=== PATIENT | male | born 1955 | race Caucasian/White ===

== ENCOUNTER 2016-07-31 08:54 | Inpatient (IN) | payer OTHER ==
--- NOTE | 2016-07-31 08:59 | EDM.PDOC ---
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 Contents of the pipe exploded off and hit him on the left side of his abdomen this morning. Review of systems: As per history of present illness and below otherwise all systems reviewed and negative. Past medical history: As per history of present illness and as reviewed below otherwise noncontributory. Surgical history: As per history of present illness and as reviewed below otherwise noncontributory. Social history: No reported history of drug or alcohol abuse. Family history: As per history of present illness and as reviewed below otherwise noncontributory. Physical exam: General: Well developed, well nourished in NAD HEENT: Atraumatic, normocephalic, pupils reactive, negative for conjunctival pallor or scleral icterus, mucous membranes moist, throat clear, neck supple, nontender, trachea midline. Lungs: Clear to auscultation, breath sounds equal bilaterally, tender left lower chest, there is no subcutaneous or bony crepitance, linear contusion on the left lower chest wall extending to the left upper abdomen. Heart: S1S2, regular, negative for clicks, rubs, or JVD. Abdomen: Soft, nondistended, moderate left upper quadrant tenderness and mild diffuse tenderness extending to the pelvis without rebound or guarding. Negative for masses. Pelvis: Stable nontender. Genitourinary: Deferred. Rectal: Deferred. Extremities: Atraumatic, negative for cords or calf pain. Neurovascular unremarkable. Neuro: Awake, alert, oriented. Cranial nerves II through XII unremarkable. Cerebellum unremarkable. Motor and sensory unremarkable throughout. Exam nonfocal. Diagnostics: []CT abdomen chest pelvis shows a ruptured spleen otherwise normal labs and vital signs are stable while in the ED. Therapeutics: []IV fluids and Zofran patient declined pain medication Impression: []Ruptured spleen Plan: []Admit to general surgery directly to the OR for splenectomy by Dr. Geronimo. Definitive disposition and diagnosis as appropriate pending reevaluation and review of above. left rib Pain Score (Numeric/FACES): 3 - Related Data Allergies Allergy/AdvReac Type Severity Reaction Status Date / Time No Known Allergies Allergy Verified 07/31/16 08:55 Home Meds: Home Meds . [No Known Home Meds] 07/31/16 [History] ED ROS GENERAL - Review of Systems Review Of Systems: See Below (See history of present illness) ED EXAM, GENERAL - Physical Exam Exam: See Below (See history of present illness) Course - Vital Signs Last Recorded V/S: Last Vital Signs Temp 36.4 C 07/31/16 08:56 Pulse 87 07/31/16 09:43 Resp 18 07/31/16 09:43 BP 144/88 H 07/31/16 09:43 Pulse Ox 97 07/31/16 09:43 - Orders/Labs/Meds Orders: Active Orders 24 hr Category Date Time Status Patient Status [ADT] Stat ADT 07/31/16 09:58 Ordered Antiembolic Devices [RC] PER UNIT ROUTINE Care 07/31/16 10:04 Active Wells Catheter Insertion [Insert Urinary Catheter] [OM. Care 07/31/16 10:15 Ordered PC] Q24H Oxygen Therapy [RC] PRN Care 07/31/16 10:03 Active Pulse Oximetry [RC] INTERMITTENT Care 07/31/16 10:03 Active Skin Preparation [RC] .PREOP Care 07/31/16 10:03 Active Urinary Catheter Assessment [RC] ASDIRECTED Care 07/31/16 10:03 Active Urinary Catheter Assessment [RC] ASDIRECTED Care 07/31/16 10:04 Active Vital Signs [RC] PER UNIT ROUTINE Care 07/31/16 10:03 Active Nothing Per Oral Diet [DIET] Diet 07/31/16 Breakfast Active TYPE AND SCREEN [BBK] Stat Lab 07/31/16 09:49 Received UA W/MICROSCOPIC [URIN] Stat Lab 07/31/16 09:00 Uncollected Lactated Ringers [Ringers, Lactated] 1,000 ml Med 07/31/16 10:15 Active IV ASDIRECTED Antiembolic Hose [OM.PC] PER UNIT ROUTINE Oth 07/31/16 06:00 Ordered Antiembolic Hose [OM.PC] PER UNIT ROUTINE Oth 08/01/16 06:00 Ordered Saline Lock Insert [OM.PC] Stat Oth 07/31/16 08:59 Ordered Sequential Compression Device [OM.PC] Routine Oth 07/31/16 10:03 Ordered Resuscitation Status Routine Resus Stat 07/31/16 10:03 Ordered Medication Orders Lactated Ringer's (Ringers, Lactated) 1,000 mls @ 125 mls/hr IV ASDIRECTED [facility] Labs: Laboratory Tests 07/31/16 07/31/16 Range/Units 09:00 09:00 WBC 10.26 (4.0-11.0) K/uL RBC 4.74 (4.50-5.90) M/uL Hgb 14.4 (13.0-17.0) g/dL Hct 41.5 (38.0-50.0) % MCV 87.6 (80.0-98.0) fL MCH 30.4 (27.0-32.0) pg MCHC 34.7 (31.0-37.0) g/dL RDW Std Deviation 42.8 (28.0-62.0) fl RDW Coeff of Gustavo 13 (11.0-15.0) % Plt Count 164 (150-400) K/uL MPV 10.70 (7.40-12.00) fL Neut % (Auto) 86.1 H (48.0-80.0) % Lymph % (Auto) 7.2 L (16.0-40.0) % [place] % (Auto) 5.9 (0.0-15.0) % Eos % (Auto) 0.7 (0.0-7.0) % Baso % (Auto) 0.1 (0.0-1.5) % Neut # (Auto) 8.8 H (1.4-5.7) K/uL Lymph # (Auto) 0.7 (0.6-2.4) K/uL [place] # (Auto) 0.6 (0.0-0.8) K/uL Eos # (Auto) 0.1 (0.0-0.7) K/uL Baso # (Auto) 0.0 (0.0-0.1) K/uL Nucleated RBC % 0.0 /100WBC Nucleated RBCs # 0 K/uL Sodium 141 (136-146) mmol/L Potassium 4.0 (3.5-5.1) mmol/L Chloride 112 H (98-110) mmol/L Carbon Dioxide 20 L (21-31) mmol/L BUN 15 (6.0-23.0) mg/dL Creatinine 1.6 H (0.6-1.5) mg/dL Est Cr Clr Drug Dosing 59.52 mL/min Estimated GFR (MDRD) 44.2 ml/min Glucose 134 H (60-110) mg/dL Calcium 8.6 L (8.8-10.8) mg/dL Total Bilirubin 0.6 (0.1-1.5) mg/dL AST 20 (5-40) IU/L ALT 20 (8-54) IU/L Alkaline Phosphatase 71 (40-150) Total Protein 6.8 (6.0-8.0) g/dL Albumin 4.0 (3.4-4.8) g/dL Globulin 2.8 (2.0-3.5) g/dL Albumin/Globulin Ratio 1.4 (1.3-2.8) Lipase 13 (7-80) U/L Meds: Medications Generic Name Dose Route Start Last Admin Trade Name Freq PRN Reason Stop Dose Admin Lactated Ringer's 1,000 mls @ 125 mls/hr 07/31/16 10:15 Ringers, Lactated IV ASDIRECTED ERIC Discontinued Medications Generic Name Dose Route Start Last Admin Trade Name Freq PRN Reason Stop Dose Admin Etomidate Confirm 07/31/16 10:05 Amidate Administered 07/31/16 10:06 Dose 40 mg IVPUSH .STK-MED ONE Fentanyl Confirm 07/31/16 10:06 Sublimaze Administered 07/31/16 10:07 Dose 250 mcg .ROUTE .STK-MED ONE Sodium Chloride 1,000 mls @ 999 mls/hr 07/31/16 09:00 07/31/16 09:16 Normal Saline IV 07/31/16 10:00 999 mls/hr .Bolus ONE Administration Iopamidol 100 ml 07/31/16 09:21 07/31/16 09:21 Isovue-370 (76%) IVPUSH 07/31/16 09:22 100 ml ONETIME STA Administration Midazolam HCl Confirm 07/31/16 10:05 Versed 1 Mg/Ml Administered 07/31/16 10:06 Dose 2 mg .ROUTE .STK-MED ONE Ondansetron HCl 4 mg 07/31/16 09:03 07/31/16 09:13 Zofran IVPUSH 07/31/16 09:04 4 mg ONETIME ONE Administration Succinylcholine Chloride Confirm 07/31/16 10:05 Succinylcholine In Ns Pf Administered 07/31/16 10:06 Dose 200 mg .ROUTE .STK-MED ONE Departure - Departure Time of Disposition: 10:21 Disposition: Admitted As Inpatient 65 Condition: good Clinical Impression: Traumatic rupture of spleen Qualifiers: Encounter type: initial encounter Qualified Code(s): S36.09XA - Other injury of spleen, initial encounter - Discharge Information Forms: ED Department Discharge - My Orders Last 24 Hours: My Active Orders 07/31/16 08:59 Saline Lock Insert [OM.PC] Stat 07/31/16 09:00 UA W/MICROSCOPIC [URIN] Stat 07/31/16 09:49 TYPE AND SCREEN [BBK] Stat 07/31/16 09:58 Patient Status [ADT] Stat - Assessment/Plan Last 24 Hours: My Active Orders 07/31/16 08:59 Saline Lock Insert [OM.PC] Stat 07/31/16 09:00 UA W/MICROSCOPIC [URIN] Stat 07/31/16 09:49 TYPE AND SCREEN [BBK] Stat 07/31/16 09:58 Patient Status [ADT] Stat
[2016-07-31] MEDS ORDERED: Sodium Chloride 0.9% 1,000 ML IV ONE (09:00)
[2016-07-31] MEDS ORDERED: Ondansetron 4 MG/2 ML SDV IVPUSH ONE (09:03)
[2016-07-31] MEDS ORDERED: Iopamidol 755 Mg/ML 100 ML Bottle IVPUSH STA (09:21)
--- NOTE | 2016-07-31 09:48 | CT ---
CT of the chest, abdomen and pelvis with contrast. HISTORY: Trauma TECHNIQUE: Axial CT images were obtained of the chest, abdomen and pelvis following administration o f Isovue-370 without complication. Coronal and sagittal reconstructions obtained. FINDINGS: Chest: The lungs are clear without focal consolidation. No pleural effusion or pneumothorax. There a re several 3 to 4 mm pulmonary nodules noted bilaterally. The heart is normal in size without a siddharth cardial effusion. The thoracic aorta is normal in size. The main and central pulmonary arteries are patent. No mediastinal, hilar, or axillary lymphadenopathy. The central airways are clear. Abdomen: the liver, pancreas, and gallbladder appear grossly unremarkable. There is a tiny 5 mm nodu le within the left adrenal gland. There is a complex splenic laceration extending to the hilum with a small to moderate amount of hemorrhage within the abdomen and pelvis. There is possibly thickening of the quinteros of the proximal jejunum, under small bowel hematoma is not excluded. The kidneys enhance and function symmetrically without evidence of obstructive uropathy. Moderate co rtical and peripelvic cysts are noted bilaterally, left greater than right. Pelvis: The large and small bowel are otherwise normal in caliber without evidence of obstruction. S mall amount of hemorrhage is noted within the pelvis. The urinary bladder is mostly decompressed. Th e prostate is moderately prominent size. No bulky pelvic lymphadenopathy. Mild to moderate degenerative changes noted within the lumbar spine. No acute osseous abnormality id entified. IMPRESSION: 1. High-grade splenic laceration with a small to moderate amount of intraperitoneal hemorrhage. 2. Thickening of adjacent loops of jejunum, a small bowel hematoma is not excluded. 3. Degenerative changes noted within the lower lumbar spine. 4. Cortical and peripelvic renal cysts. 5. Mild prostatomegaly. 6. Several tiny pulmonary nodules within the lung bases bilaterally. If the patient has known risk f actors consider follow-up imaging in 12 months.
[2016-07-31] MEDS ORDERED: Midazolam 1 MG/ML 2 ML SDV ONE (10:05)
[2016-07-31] MEDS ORDERED: Succinylcholine/Normal Saline 200 MG/10 ML Syringe ONE (10:05)
[2016-07-31] MEDS ORDERED: Etomidate 2 MG/ML 20 ML SDV IVPUSH ONE (10:05)
[2016-07-31] MEDS ORDERED: fentaNYL 250 MCG/5 ML SDV ONE (10:06)
--- NOTE | 2016-07-31 10:10 | PCM.HP ---
H&P History of Present Illness - General Date of Service: 07/31/16 Admit Problem/Dx: Acute abdomen. Ruptured spleen. 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 He hit a gas pocket, and a projectile from the pipe struck him in the abdomen. He presented to the emergency room and was seen by Dr. Adkins. CT scan shows a severely injured spleen with fragmentation, extending all the way to the hilum. Report has been reviewed with Dr. Gutierrez, and the images personally reviewed. Onset of Symptoms: Reports: Today Duration of Symptoms: Reports: Getting Worse Location: Reports: Abdomen Quality: Reports: Ache, Pressure Improves with: Reports: Rest Worsens with: Reports: Movement Associated Symptoms: Reports: No Other Symptoms left rib Pain Score (Numeric/FACES): 3 - Related Data Allergies/Adverse Reactions: Allergies Allergy/AdvReac Type Severity Reaction Status Date / Time No Known Allergies Allergy Verified 07/31/16 08:55 Home Medications: Home Meds . [No Known Home Meds] 07/31/16 [History] Past Medical History - Past Surgical History Musculoskeletal Surgical History: Reports: Other (See Below) Other Musculoskeletal Surgeries/Procedures:: toe surgery Social & Family History - Family History Family Medical History: Noncontributory - Tobacco Use Smoking Status *Q: Never Smoker - Recreational Drug Use Recreational Drug Use: No H&P Review of Systems - Review of Systems: Review Of Systems: See Below General: Reports: Weakness. Denies: Fever, Chills, Malaise, Fatigue HEENT: Reports: No Symptoms Pulmonary: Denies: Shortness of Breath, Wheezing Cardiovascular: Denies: Chest Pain Gastrointestinal: Reports: Abdominal Pain, Distension. Denies: Black Stool, Bloody Stool, Constipation, Diarrhea Genitourinary: Reports: No Symptoms Musculoskeletal: Reports: No Symptoms Skin: Reports: No Symptoms Psychiatric: Reports: No Symptoms Neurological: Reports: No Symptoms Hematologic/Lymphatic: Reports: No Symptoms Immunologic: Reports: No Symptoms Exam - Exam Exam: See Below - Vital Signs Vital Signs: Last Vital Signs Temp 97.6 F 07/31/16 08:56 Pulse 87 07/31/16 09:43 Resp 18 07/31/16 09:43 BP 144/88 H 07/31/16 09:43 Pulse Ox 97 07/31/16 09:43 Weight: 220 lb - Exam Quality Assessment: Supplemental Oxygen General: Alert, Oriented, Cooperative, Moderate Distress HEENT: Conjunctiva Clear, EACs Clear, EOMI, Mucosa Moist & [place], Nares Patent, Normal Nasal Septum. No: Scleral Icterus Neck: Supple, Trachea Midline Lungs: Clear to Auscultation, Normal Respiratory Effort Cardiovascular: Regular Rate, Regular Rhythm, Tachycardia Abdomen: Soft, Peritoneal Signs, Distention, Guarding, Tenderness, Hypoactive Bowel Sounds. No: Rigidity (Male) Exam: No Hernia, Normal Inspection Rectal (Males) Exam: Deferred Back Exam: Normal Inspection Extremities: Normal Inspection, Normal Pulses Skin: Warm, Dry, Intact Neurological: Cranial Nerves Intact Neuro Extensive - Mental Status: Alert, Oriented x3, Normal Mood/Affect - Patient Data Lab Results last 24 hrs: Laboratory Results - last 24 hr 07/31/16 07/31/16 Range/Units 09:00 09:00 WBC 10.26 (4.0-11.0) K/uL RBC 4.74 (4.50-5.90) M/uL Hgb 14.4 (13.0-17.0) g/dL Hct 41.5 (38.0-50.0) % MCV 87.6 (80.0-98.0) fL MCH 30.4 (27.0-32.0) pg MCHC 34.7 (31.0-37.0) g/dL RDW Std Deviation 42.8 (28.0-62.0) fl RDW Coeff of Gustavo 13 (11.0-15.0) % Plt Count 164 (150-400) K/uL MPV 10.70 (7.40-12.00) fL Neut % (Auto) 86.1 H (48.0-80.0) % Lymph % (Auto) 7.2 L (16.0-40.0) % [place] % (Auto) 5.9 (0.0-15.0) % Eos % (Auto) 0.7 (0.0-7.0) % Baso % (Auto) 0.1 (0.0-1.5) % Neut # (Auto) 8.8 H (1.4-5.7) K/uL Lymph # (Auto) 0.7 (0.6-2.4) K/uL [place] # (Auto) 0.6 (0.0-0.8) K/uL Eos # (Auto) 0.1 (0.0-0.7) K/uL Baso # (Auto) 0.0 (0.0-0.1) K/uL Nucleated RBC % 0.0 /100WBC Nucleated RBCs # 0 K/uL Sodium 141 (136-146) mmol/L Potassium 4.0 (3.5-5.1) mmol/L Chloride 112 H (98-110) mmol/L Carbon Dioxide 20 L (21-31) mmol/L BUN 15 (6.0-23.0) mg/dL Creatinine 1.6 H (0.6-1.5) mg/dL Est Cr Clr Drug Dosing 59.52 mL/min Estimated GFR (MDRD) 44.2 ml/min Glucose 134 H (60-110) mg/dL Calcium 8.6 L (8.8-10.8) mg/dL Total Bilirubin 0.6 (0.1-1.5) mg/dL AST 20 (5-40) IU/L ALT 20 (8-54) IU/L Alkaline Phosphatase 71 (40-150) Total Protein 6.8 (6.0-8.0) g/dL Albumin 4.0 (3.4-4.8) g/dL Globulin 2.8 (2.0-3.5) g/dL Albumin/Globulin Ratio 1.4 (1.3-2.8) Lipase 13 (7-80) U/L Result Diagrams: 07/31/16 09:00 07/31/16 09:00 *Q Meaningful Use (ADM) - VTE *Q VTE Criteria *Q: - Stroke *Q Stroke Criteria *Q: - AMI *Q AMI Criteria *Q: - Problem List (1) Spleen massive parenchymal disruption without open wound into cavity SNOMED Code(s): 35966615 ICD Code: S36.09XA - OTHER INJURY OF SPLEEN, INITIAL ENCOUNTER Status: Acute Priority: High Current Visit: Yes Qualifiers: Encounter type: initial encounter Qualified Code(s): S36.09XA - Other injury of spleen, initial encounter Problem List Initiated/Reviewed/Updated: Yes Orders Last 24hrs: Active Orders 24 hr Category Date Time Status Antiembolic Devices [RC] PER UNIT ROUTINE Care 07/31/16 10:04 Ordered Wells Catheter Insertion [Insert Urinary Catheter] [OM. Care 07/31/16 10:15 Ordered PC] Q24H Oxygen Therapy [RC] PRN Care 07/31/16 10:03 Ordered Pulse Oximetry [RC] INTERMITTENT Care 07/31/16 10:03 Ordered Skin Preparation [RC] .PREOP Care 07/31/16 10:03 Ordered Urinary Catheter Assessment [RC] ASDIRECTED Care 07/31/16 10:03 Ordered Urinary Catheter Assessment [RC] ASDIRECTED Care 07/31/16 10:04 Ordered Vital Signs [RC] PER UNIT ROUTINE Care 07/31/16 10:03 Ordered Nothing Per Oral Diet [DIET] Diet 07/31/16 Breakfast Ordered TYPE AND SCREEN [BBK] Stat Lab 07/31/16 09:49 Received UA W/MICROSCOPIC [URIN] Stat Lab 07/31/16 09:00 Uncollected Lactated Ringers @ 125 MLS/HR(1000ml) Med 07/31/16 10:15 Ordered Lactated Ringers [Ringers, Lactated] 1,000 ml IV ASDIRECTED Antiembolic Hose [OM.PC] PER UNIT ROUTINE Oth 07/31/16 06:00 Ordered Antiembolic Hose [OM.PC] PER UNIT ROUTINE Oth 08/01/16 06:00 Ordered Saline Lock Insert [OM.PC] Stat Oth 07/31/16 08:59 Ordered Sequential Compression Device [OM.PC] Routine Oth 07/31/16 10:03 Ordered Resuscitation Status Routine Resus Stat 07/31/16 10:03 Ordered Assessment/Plan Comment:: Ruptured spleen. Exploratory laparotomy with splenectomy. The operative procedure, along with the risks, including, but not limited to, bleeding, infection, pneumonia, deep venous thrombosis, pulmonary emboli, myocardial infarction, pneumococcal pneumonia, postsplenectomy sepsis, and even have been reviewed with the patient. He states he understands. Questions have been answered. He wishes to proceed. He has been informed that he will require complete splenectomy.
[2016-07-31] MEDS ORDERED: Propofol 200 MG/20 ML SDV ONE (10:14)
[2016-07-31] MEDS ORDERED: Lactated Ringers 1,000 ML IV SCH (10:15)
--- NOTE | 2016-07-31 10:19 | PCM.PREANE ---
Preanesthetic Assessment - Procedure Proposed Procedure: Splenectomy for traumatic rupture; emergency - Anesthesia/Transfusion/Family Hx Anesthesia History: Prior Anesthesia Without Reaction Family History of Anesthesia Reaction: No Intubation History: Unknown - Review of Systems General: Other (abdominal pain) Pulmonary: Shortness of Breath (due to pain in belly) Cardiovascular: No Symptoms Gastrointestinal: No symptoms, Abdominal pain Neurological: No Symptoms Other: Reports: None - Physical Assessment NPO Status Date: 07/31/16 NPO Status Time: 07:00 (2 small bananas, coca cola) O2 Sat by Pulse Oximetry: 97 Respiratory Rate: 18 Vital Signs: Last Vital Signs Temp 97.6 F 07/31/16 08:56 Pulse 87 07/31/16 09:43 Resp 18 07/31/16 09:43 BP 144/88 H 07/31/16 09:43 Pulse Ox 97 07/31/16 09:43 Height: 6 ft 4 in Weight: 220 lb ASA Class: 3E Mental Status: Alert & Oriented x3 Airway Class: Mallampati = 2 Dentition: Reports: Normal Dentition Thyro-Mental Finger Breadths: 3 Mouth Opening Finger Breadths: 3 ROM/Head Extension: Full Lungs: Clear to auscultation, Normal respiratory effort Cardiovascular: Regular Rate, Regular Rhythm, No Murmurs - Lab Values: Laboratory Last Values WBC 10.26 K/uL (4.0-11.0) 07/31/16 09:00 RBC 4.74 M/uL (4.50-5.90) 07/31/16 09:00 Hgb 14.4 g/dL (13.0-17.0) 07/31/16 09:00 Hct 41.5 % (38.0-50.0) 07/31/16 09:00 MCV 87.6 fL (80.0-98.0) 07/31/16 09:00 MCH 30.4 pg (27.0-32.0) 07/31/16 09:00 MCHC 34.7 g/dL (31.0-37.0) 07/31/16 09:00 RDW Std Deviation 42.8 fl (28.0-62.0) 07/31/16 09:00 RDW Coeff of Gustavo 13 % (11.0-15.0) 07/31/16 09:00 Plt Count 164 K/uL (150-400) 07/31/16 09:00 MPV 10.70 fL (7.40-12.00) 07/31/16 09:00 Neut % (Auto) 86.1 % (48.0-80.0) H 07/31/16 09:00 Lymph % (Auto) 7.2 % (16.0-40.0) L 07/31/16 09:00 [place] % (Auto) 5.9 % (0.0-15.0) 07/31/16 09:00 Eos % (Auto) 0.7 % (0.0-7.0) 07/31/16 09:00 Baso % (Auto) 0.1 % (0.0-1.5) 07/31/16 09:00 Neut # (Auto) 8.8 K/uL (1.4-5.7) H 07/31/16 09:00 Lymph # (Auto) 0.7 K/uL (0.6-2.4) 07/31/16 09:00 [place] # (Auto) 0.6 K/uL (0.0-0.8) 07/31/16 09:00 Eos # (Auto) 0.1 K/uL (0.0-0.7) 07/31/16 09:00 Baso # (Auto) 0.0 K/uL (0.0-0.1) 07/31/16 09:00 Nucleated RBC % 0.0 /100WBC 07/31/16 09:00 Nucleated RBCs # 0 K/uL 07/31/16 09:00 Sodium 141 mmol/L (136-146) 07/31/16 09:00 Potassium 4.0 mmol/L (3.5-5.1) 07/31/16 09:00 Chloride 112 mmol/L (98-110) H 07/31/16 09:00 Carbon Dioxide 20 mmol/L (21-31) L 07/31/16 09:00 BUN 15 mg/dL (6.0-23.0) 07/31/16 09:00 Creatinine 1.6 mg/dL (0.6-1.5) H 07/31/16 09:00 Est Cr Clr Drug Dosing 59.52 mL/min 07/31/16 09:00 Estimated GFR (MDRD) 44.2 ml/min 07/31/16 09:00 Glucose 134 mg/dL (60-110) H 07/31/16 09:00 Calcium 8.6 mg/dL (8.8-10.8) L 07/31/16 09:00 Total Bilirubin 0.6 mg/dL (0.1-1.5) 07/31/16 09:00 AST 20 IU/L (5-40) 07/31/16 09:00 ALT 20 IU/L (8-54) 07/31/16 09:00 Alkaline Phosphatase 71 (40-150) 07/31/16 09:00 Total Protein 6.8 g/dL (6.0-8.0) 07/31/16 09:00 Albumin 4.0 g/dL (3.4-4.8) 07/31/16 09:00 Globulin 2.8 g/dL (2.0-3.5) 07/31/16 09:00 Albumin/Globulin Ratio 1.4 (1.3-2.8) 07/31/16 09:00 Lipase 13 U/L (7-80) 07/31/16 09:00 - Allergies Allergies/Adverse Reactions: Allergies Allergy/AdvReac Type Severity Reaction Status Date / Time No Known Allergies Allergy Verified 07/31/16 08:55 - Blood Blood Available: Yes Product(s) Available: PRBC (T and S/T and Cross ordered) - Acknowledgements Anesthesia Type Planned: General Anesthesia Pt an Appropriate Candidate for the Planned Anesthesia: Yes Alternatives and Risks of Anesthesia Discussed w Pt/Guardian: Yes Pt/Guardian Understands and Agrees with Anesthesia Plan: Yes PreAnesthesia Questionnaire - Past Surgical History Musculoskeletal Surgical History: Reports: Other (See Below) Other Musculoskeletal Surgeries/Procedures:: toe surgery - SUBSTANCE USE Smoking Status *Q: Never Smoker Recreational Drug Use History: No - HOME MEDS Home Medications: Home Meds . [No Known Home Meds] 07/31/16 [History] - CURRENT (IN HOUSE) MEDS Current Meds: Current Medications Lactated Ringer's (Ringers, Lactated) 1,000 mls @ 125 mls/hr IV ASDIRECTED ERIC Discontinued Medications Etomidate (Amidate) Confirm Administered Dose 40 mg IVPUSH .STK-MED ONE Stop: 07/31/16 10:06 Fentanyl (Sublimaze) Confirm Administered Dose 250 mcg .ROUTE .STK-MED ONE Stop: 07/31/16 10:07 Sodium Chloride (Normal Saline) 1,000 mls @ 999 mls/hr IV .Bolus ONE Stop: 07/31/16 10:00 Last Admin: 07/31/16 09:16 Dose: 999 mls/hr Iopamidol (Isovue-370 (76%)) 100 ml IVPUSH ONETIME STA Stop: 07/31/16 09:22 Last Admin: 07/31/16 09:21 Dose: 100 ml Midazolam HCl (Versed 1 Mg/Ml) Confirm Administered Dose 2 mg .ROUTE .STK-MED ONE Stop: 07/31/16 10:06 Ondansetron HCl (Zofran) 4 mg IVPUSH ONETIME ONE Stop: 07/31/16 09:04 Last Admin: 07/31/16 09:13 Dose: 4 mg Succinylcholine Chloride (Succinylcholine In Ns Pf) Confirm Administered Dose 200 mg .ROUTE .STK-MED ONE Stop: 07/31/16 10:06
[2016-07-31] MEDS ORDERED: ceFAZolin 1 GM Vial ONE (10:41)
[2016-07-31] MEDS ORDERED: Sodium Chloride 0.9% 20 ML ONE ×2 (10:41→11:29)
[2016-07-31] MEDS ORDERED: Bupivacaine 0.5% 10 ML SDV ONE (10:54)
[2016-07-31] MEDS ORDERED: HYDROmorphone 2 MG/ML Syringe ONE (11:13)
[2016-07-31] MEDS ORDERED: Furosemide 40 MG/4 ML VIAL ONE (11:18)
[2016-07-31] MEDS ORDERED: ePHEDrine 50 MG/ML SDV ONE (11:26)
[2016-07-31] MEDS ORDERED: Phenylephrine 1% 10 MG/ML SDV ONE (11:26)
[2016-07-31] MEDS ORDERED: Neostigmine Methylsulfate 1 MG/ML 5 ML Syringe ONE (11:26)
[2016-07-31] MEDS ORDERED: Ondansetron 4 MG/2 ML SDV IVPUSH PRN ×2 (11:58→22:53)
[2016-07-31] MEDS ORDERED: Morphine PF 30 MG/30 ML PCA Vial IV SCH ×2 (12:00→12:15)
--- NOTE | 2016-07-31 12:03 | PCM.OPNOTE ---
- General Post-Op/Procedure Note Date of Surgery/Procedure: 07/31/16 Operative Procedure(s): Splenectomy Pre Op Diagnosis: Traumatic ruptured spleen Post-Op Diagnosis: Same Anesthesia Technique: General ET tube (ASA IIIE) Primary Surgeon: Marco Antonio Geronimo Secondary Surgeon: Krystle Brito Fluid Replacement, Intraop: 2,000 (2 U PRBC's) Output, Urine Amount: 150 EBL in mLs: 1,500 Condition: Fair Free Text/Narrative:: Dictation [id number]
[2016-07-31] MEDS: fentaNYL 100 MCG/2 ML SDV IVPUSH PRN ×2 (12:23→12:35)
--- NOTE | 2016-07-31 13:35 | PCM.POSTAN ---
POST ANESTHESIA ASSESSMENT - MENTAL STATUS Mental Status: alert, oriented - RESPIRATORY Respiratory Status: respiratory rate WNL, airway patent, O2 saturation stable - CARDIOVASCULAR CV Status: pulse rate WNL, blood pressure stable - GASTROINTESTINAL GI Status: no symptoms - POST OP HYDRATION Hydration Status: adequate & stable
[2016-07-31] MEDS: Lactated Ringers 1,000 ML IV SCH ×2 (14:14→21:55)
[2016-07-31] MEDS: Metoclopramide 10 MG/2 ML SDV IV SCH ×3 (14:25→22:56)
--- NOTE | 2016-07-31 19:56 | OR ---
SURGEON: Marco Antonio Geronimo M.D. DATE OF PROCEDURE: 07/31/2016 OPERATION PERFORMED: Traumatic splenectomy. CUBING MACHINE TENDER: Dr. Brito. ANESTHESIA: General endotracheal. ASA CLASSIFICATION: IIIE. PREOPERATIVE DIAGNOSIS: Traumatic rupture of the spleen. POSTOPERATIVE DIAGNOSIS: Traumatic rupture of the spleen. ESTIMATED BLOOD LOSS: 1500 mL. INTRAOPERATIVE FLUID REPLACEMENT: 2 L of crystalloid and 2 units of packed red blood cells. DESCRIPTION OF PROCEDURE: The patient was taken to the operating room and placed the operating table in the supine position. Time-out was called for appropriate identification of the patient and procedure. Sequential compression boots were placed. Following satisfactory attainment of general endotracheal anesthesia, a Wells catheter was placed in the patient's urinary bladder. The abdomen was then prepped with Betadine solution. Sterile drapes were applied. Upper midline incision was begun extending from the xiphoid inferiorly skirting to the left around the umbilicus. Hemostasis was obtained with the use of electrocautery. Electrocautery was used to open the entire length of the incision, including the fascia and peritoneum. Once the peritoneal cavity was entered, there was a large amount of blood present. Clotted blood was also present. This was removed, and the spleen was delivered into the wound. The spleen was significantly damaged, and there was no hope of salvage. Clamps were placed across the splenic hilum, and the spleen was removed. The splenic hilum was then ligated with multiple doubled 0 silk sutures. The sutures were held and inspected for hemostasis, no other bleeding was noted. The splenic hilum was then allowed to retract back into the abdominal cavity. The left upper quadrant was aspirated of all clotted blood and then irrigated with sterile saline solution. No other bleeding of significance was noted. Because of a questionable small-bowel mesenteric hematoma, the small bowel was examined from ligament of Treitz to ileocecal valve, and no significant hematoma was noted. No bruising of the mesentery was identified, and there did not appear to be any blood in the small bowel lumen. There was also no evidence of serosal injury. The pelvis was then irrigated with sterile saline solution and all fluid aspirated. The left upper quadrant was again inspected, and Surgicel was placed into the left upper quadrant. Position of the NG tube was confirmed intraoperatively and then secured. With that, the wound was inspected for hemostasis. No other bleeding was noted. The midline fascia was reapproximated with #1 looped PDS. An On-Q catheter was placed into the subcutaneous tissue. The subcutaneous tissue was closed with 3-0 Polysorb, and the skin edges were reapproximated with skin clips. The On-Q catheter was connected. The incision was then dressed with sterile Tegaderm pad. Sponge, needle, and instrument counts were all correct. The patient tolerated the procedure well. Following emergence from anesthesia and extubation, he was taken to the recovery room in stable condition. He will be transferred to the intensive care unit from [facility]. BENITA CARBONE /[id number]
[2016-07-31] MEDS ORDERED: fentaNYL 100 MCG/2 ML SDV IVPUSH PRN (22:53)
[2016-07-31] MEDS: Morphine PF 30 MG/30 ML PCA Vial IV SCH (22:56)
[2016-08-01] MEDS: Metoclopramide 10 MG/2 ML SDV IV SCH ×4 (04:50→23:30)
[2016-08-01] MEDS: Lactated Ringers 1,000 ML IV SCH ×3 (05:51→21:48)
--- NOTE | 2016-08-01 08:23 | PCM.SURGPN ---
- General Info Date of Service: 08/01/16 POD#: 1 Post-Op Diagnosis: Ruptured spleen Functional Status: Reports: pain controlled, ambulating - Review of Systems General: Denies: Fever, Weakness, Fatigue HEENT: Reports: no symptoms Pulmonary: Denies: shortness of breath, pleuritic chest pain, cough Cardiovascular: Reports: No Symptoms Gastrointestinal: Reports: Abdominal pain (incisional), Decreased appetite. Denies: Diarrhea, Difficulty swallowing, Nausea, Vomiting Genitourinary: Reports: no symptoms Musculoskeletal: Reports: no symptoms Skin: Denies: cyanosis, jaundice, mottled Neurological: Reports: No Symptoms Psychiatric: Reports: no symptoms - Patient Data Vitals - most recent: Last Vital Signs Temp 98.2 F 08/01/16 04:00 Pulse 92 07/31/16 21:00 Resp 9 L 08/01/16 06:53 BP 108/81 08/01/16 06:53 Pulse Ox 92 L 08/01/16 06:53 Weight - most recent: 220 lb I&O - last 24 hours: Intake & Output 07/31/16 08/01/16 08/01/16 19:59 03:59 11:59 Intake Total 0 1000 1000 Output Total 225 470 Balance -225 1000 530 Lab Results last 24 hrs: Laboratory Results - last 24 hr 07/31/16 08/01/16 08/01/16 Range/Units 16:03 04:33 04:33 WBC 16.89 H 12.84 H (4.0-11.0) K/uL RBC 4.57 4.31 L (4.50-5.90) M/uL Hgb 13.5 12.9 L (13.0-17.0) g/dL Hct 39.8 38.1 (38.0-50.0) % MCV 87.1 88.4 (80.0-98.0) fL MCH 29.5 29.9 (27.0-32.0) pg MCHC 33.9 33.9 (31.0-37.0) g/dL RDW Std Deviation 45.1 46.6 (28.0-62.0) fl RDW Coeff of Gustavo 14 14 (11.0-15.0) % Plt Count 140 L 146 L (150-400) K/uL MPV 10.70 10.70 (7.40-12.00) fL Neut % (Auto) 79.6 (48.0-80.0) % Lymph % (Auto) 6.4 L (16.0-40.0) % [place] % (Auto) 14.0 (0.0-15.0) % Eos % (Auto) 0.0 (0.0-7.0) % Baso % (Auto) 0.0 (0.0-1.5) % Neut # (Auto) 10.2 H (1.4-5.7) K/uL Lymph # (Auto) 0.8 (0.6-2.4) K/uL [place] # (Auto) 1.8 H (0.0-0.8) K/uL Eos # (Auto) 0.0 (0.0-0.7) K/uL Baso # (Auto) 0.0 (0.0-0.1) K/uL Nucleated RBC % 0.0 0.0 /100WBC Nucleated RBCs # 0 0 K/uL Sodium 140 (136-146) mmol/L Potassium 4.8 (3.5-5.1) mmol/L Chloride 111 H (98-110) mmol/L Carbon Dioxide 22 (21-31) mmol/L BUN 19 (6.0-23.0) mg/dL Creatinine 1.5 (0.6-1.5) mg/dL Est Cr Clr Drug Dosing 63.49 mL/min Estimated GFR (MDRD) 47.6 ml/min Glucose 134 H (60-110) mg/dL Calcium 7.7 L (8.8-10.8) mg/dL Med Orders - Current: Current Medications Fentanyl (Sublimaze) 50 mcg IVPUSH SEECOMMENT PRN PRN Reason: Pain (moderate 4-6) Lactated Ringer's (Ringers, Lactated) 1,000 mls @ 125 mls/hr IV ASDIRECTED [facility] Last Admin: 08/01/16 05:51 Dose: 125 mls/hr Metoclopramide HCl (Reglan) 10 mg IV Q6H [facility] Last Admin: 08/01/16 04:50 Dose: 10 mg Morphine Sulfate (Morphine Human Resources Vice President 30 Mg In 30 Ml) 30 mg IV ASDIRECTED [facility] PRN Reason: Protocol Last Admin: 07/31/16 22:56 Dose: 30 mg Ondansetron HCl (Zofran) 4 mg IVPUSH Q6H PRN PRN Reason: Nausea/Vomiting Discontinued Medications Bupivacaine HCl (Sensorcaine-Mpf 0.5%) Confirm Administered Dose 110 ml .ROUTE .STK-MED ONE Stop: 07/31/16 10:55 Cefazolin Sodium (Ancef) Confirm Administered Dose 2 gm .ROUTE .STK-MED ONE Stop: 07/31/16 10:42 Ephedrine Sulfate (Ephedrine Sulfate) Confirm Administered Dose 50 mg .ROUTE .STK-MED ONE Stop: 07/31/16 11:27 Etomidate (Amidate) Confirm Administered Dose 40 mg IVPUSH .STK-MED ONE Stop: 07/31/16 10:06 Fentanyl (Sublimaze) Confirm Administered Dose 250 mcg .ROUTE .STK-MED ONE Stop: 07/31/16 10:07 Fentanyl (Sublimaze) 50 mcg IVPUSH SEECOMMENT PRN PRN Reason: Pain (moderate 4-6) Last Admin: 07/31/16 12:35 Dose: 50 mcg Furosemide (Lasix) Confirm Administered Dose 40 mg .ROUTE .STK-MED ONE Stop: 07/31/16 11:19 Glycopyrrolate () Confirm Administered Dose 1 mg .ROUTE .STK-MED ONE Stop: 07/31/16 11:27 Hydromorphone HCl (Dilaudid) Confirm Administered Dose 2 mg .ROUTE .STK-MED ONE Stop: 07/31/16 11:14 Sodium Chloride (Normal Saline) 1,000 mls @ 999 mls/hr IV .Bolus ONE Stop: 07/31/16 10:00 Last Admin: 07/31/16 09:16 Dose: 999 mls/hr Lactated Ringer's (Ringers, Lactated) 1,000 mls @ 125 mls/hr IV ASDIRECTED [facility] Last Admin: 07/31/16 10:17 Dose: 125 mls/hr Sodium Chloride (Normal Saline) Confirm Administered Dose 20 mls @ as directed .ROUTE .STK-MED ONE Stop: 07/31/16 10:42 Sodium Chloride (Normal Saline) Confirm Administered Dose 20 mls @ as directed .ROUTE .STK-MED ONE Stop: 07/31/16 11:30 Lactated Ringer's (Ringers, Lactated) 1,000 mls @ 125 mls/hr IV ASDIRECTED [facility] Last Admin: 07/31/16 21:55 Dose: 125 mls/hr Iopamidol (Isovue-370 (76%)) 100 ml IVPUSH ONETIME STA Stop: 07/31/16 09:22 Last Admin: 07/31/16 09:21 Dose: 100 ml Metoclopramide HCl (Reglan) 10 mg IV Q6H [facility] Last Admin: 07/31/16 18:33 Dose: Not Given Midazolam HCl (Versed 1 Mg/Ml) Confirm Administered Dose 2 mg .ROUTE .STK-MED ONE Stop: 07/31/16 10:06 Morphine Sulfate (Morphine Human Resources Vice President 30 Mg In 30 Ml) 30 mg IV SEECOMMENT [facility] Morphine Sulfate (Morphine Human Resources Vice President 30 Mg In 30 Ml) 30 mg IV ASDIRECTED [facility] PRN Reason: Protocol Last Admin: 07/31/16 13:05 Dose: 30 mg Neostigmine Methylsulfate (Neostigmine) Confirm Administered Dose 5 mg .ROUTE .STK-MED ONE Stop: 07/31/16 11:27 Ondansetron HCl (Zofran) 4 mg IVPUSH ONETIME ONE Stop: 07/31/16 09:04 Last Admin: 07/31/16 09:13 Dose: 4 mg Ondansetron HCl (Zofran) 4 mg IVPUSH Q6H PRN PRN Reason: Nausea/Vomiting Phenylephrine HCl (Gus-Synephrine) Confirm Administered Dose 10 mg .ROUTE .STK- MED ONE Stop: 07/31/16 11:27 Propofol (Diprivan 20 Ml) Confirm Administered Dose 200 mg .ROUTE .STK-MED ONE Stop: 07/31/16 10:15 Succinylcholine Chloride (Succinylcholine In Ns Pf) Confirm Administered Dose 200 mg .ROUTE .STK-MED ONE Stop: 07/31/16 10:06 - Exam Wound/Incisions: dressing dry and intact, no drainage Quality Assessment: supplemental oxygen General: alert, oriented, cooperative, mild distress HEENT: Pupils equal, Pupils reactive, EOMI Neck: supple, trachea midline Lungs: Clear to auscultation, Normal respiratory effort. No: Crackles, Rales, Rhonchi Cardiovascular: Regular Rate, Regular Rhythm, No Murmurs Abdomen: soft, no distension, tenderness, abnormal bowel sounds (hypoactive). No: rigidity, rebound, guarding Extremities: no edema, normal pulses Skin: warm, dry, intact Psy/Mental Status: alert, normal affect, normal mood - Problem List & Annotations (1) Spleen massive parenchymal disruption without open wound into cavity SNOMED Code(s): 40825615 Code(s): S36.09XA - OTHER INJURY OF SPLEEN, INITIAL ENCOUNTER Status: Acute Priority: High Current Visit: Yes Qualifiers: Encounter type: initial encounter Qualified Code(s): S36.09XA - Other injury of spleen, initial encounter - Problem List Review Problem List Initiated/Reviewed/Updated: Yes - My Orders Last 24 Hours: Active Orders 24 hr Category Date Time Status Transfer Patient (Change bed) [ADT] Routine ADT 08/01/16 08:10 Ordered Ambulate [RC] ASDIRECTED Care 08/01/16 08:12 Ordered DC Wells Catheter [Urinary Catheter Removal] [RC] Per Care 08/01/16 08:11 Ordered Unit Routine Clear Liquid Diet [DIET] Diet 08/01/16 Breakfast Ordered Lactated Ringers [Ringers, Lactated] 1,000 ml Med 07/31/16 23:00 Active IV ASDIRECTED Metoclopramide [Reglan] Med 07/31/16 23:00 Active 10 mg IV Q6H Morphine PF [Morphine FOUNDRY FINISHER 30 MG in 30 ML] Med 07/31/16 23:00 Active 30 mg IV ASDIRECTED Ondansetron [Zofran] Med 07/31/16 22:53 Active 4 mg IVPUSH Q6H PRN fentaNYL [Sublimaze] Med 07/31/16 22:53 Active 50 mcg IVPUSH SEECOMMENT PRN Arterial Line Discontinue [OM.PC] Routine Oth 08/01/16 08:11 Ordered NG [Nasogastric Orogastric Tube Removal] [OM.PC] Oth 08/01/16 08:11 Ordered Routine Medication Orders Fentanyl (Sublimaze) 50 mcg IVPUSH SEECOMMENT PRN PRN Reason: Pain (moderate 4-6) Lactated Ringer's (Ringers, Lactated) 1,000 mls @ 125 mls/hr IV ASDIRECTED [facility] Last Admin: 08/01/16 05:51 Dose: 125 mls/hr Metoclopramide HCl (Reglan) 10 mg IV Q6H [facility] Last Admin: 08/01/16 04:50 Dose: 10 mg Admin: 07/31/16 22:56 Dose: 10 mg Morphine Sulfate (Morphine Human Resources Vice President 30 Mg In 30 Ml) 30 mg IV ASDIRECTED [facility] PRN Reason: Protocol Last Admin: 07/31/16 22:56 Dose: 30 mg Ondansetron HCl (Zofran) 4 mg IVPUSH Q6H PRN PRN Reason: Nausea/Vomiting - Assessment Assessment (Free Text/Narrative):: Stable post-op course. Hgb stable. - Plan Plan (Free Text/Narrative):: D/C NG, Wells and arterial line. Transfer to Med-Surg. Ambulate 6X daily. Continue IV fluids. Ice chips only.
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
--- NOTE | 2016-08-01 13:14 | PCM48HPAN ---
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
[2016-08-01] MEDS: Morphine PF 30 MG/30 ML PCA Vial IV SCH (13:40)
[2016-08-01] MEDS ORDERED: Ondansetron 4 MG/2 ML SDV IVPUSH PRN (14:19)
[2016-08-02] MEDS: Metoclopramide 10 MG/2 ML SDV IV SCH ×4 (04:55→22:20)
[2016-08-02] MEDS: Lactated Ringers 1,000 ML IV SCH ×3 (05:57→22:15)
--- NOTE | 2016-08-02 08:30 | PCM.SURGPN ---
- General Info Date of Service: 08/02/16 POD#: 2 Post-Op Diagnosis: Ruptured spleen--s/p traumatic splenectomy Functional Status: Reports: pain controlled, ambulating, urinating - Review of Systems General: Reports: Weakness, Fatigue. Denies: Fever, Chills, Night Sweats, Appetite HEENT: Reports: no symptoms Pulmonary: Denies: shortness of breath, pleuritic chest pain, hemoptysis, wheezing Cardiovascular: Denies: Chest Pain Gastrointestinal: Reports: Abdominal pain (incisional), Decreased appetite. Denies: Diarrhea, Difficulty swallowing, Flatus Genitourinary: Reports: no symptoms Musculoskeletal: Reports: no symptoms Skin: Reports: no symptoms Neurological: Reports: No Symptoms Psychiatric: Reports: no symptoms - Patient Data Vitals - most recent: Last Vital Signs Temp 99.0 F 08/02/16 07:55 Pulse 76 08/02/16 07:55 Resp 24 H 08/02/16 07:55 BP 128/87 08/02/16 07:55 Pulse Ox 99 08/02/16 07:55 Weight - most recent: 220 lb I&O - last 24 hours: Intake & Output 08/01/16 08/02/16 08/02/16 19:59 03:59 11:59 Intake Total 4577 253 4905 Output Total 200 800 Balance 1325 685 250 Med Orders - Current: Current Medications Fentanyl (Sublimaze) 50 mcg IVPUSH SEECOMMENT PRN PRN Reason: Pain (moderate 4-6) Lactated Ringer's (Ringers, Lactated) 1,000 mls @ 125 mls/hr IV ASDIRECTED [facility] Last Admin: 08/02/16 05:57 Dose: 125 mls/hr Metoclopramide HCl (Reglan) 10 mg IV Q6H [facility] Last Admin: 08/02/16 04:55 Dose: 10 mg Morphine Sulfate (Morphine Special Procedures Nurse 30 Mg In 30 Ml) 30 mg IV ASDIRECTED [facility] PRN Reason: Protocol Last Admin: 08/01/16 13:40 Dose: 30 mg Ondansetron HCl (Zofran) 4 mg IVPUSH Q6H PRN PRN Reason: Nausea/Vomiting Last Admin: 08/01/16 12:55 Dose: 4 mg Ondansetron HCl (Zofran) 4 mg IVPUSH Q6H PRN PRN Reason: Nausea/Vomiting Discontinued Medications Bupivacaine HCl (Sensorcaine-Mpf 0.5%) Confirm Administered Dose 110 ml .ROUTE .STK-MED ONE Stop: 07/31/16 10:55 Cefazolin Sodium (Ancef) Confirm Administered Dose 2 gm .ROUTE .STK-MED ONE Stop: 07/31/16 10:42 Ephedrine Sulfate (Ephedrine Sulfate) Confirm Administered Dose 50 mg .ROUTE .STK-MED ONE Stop: 07/31/16 11:27 Etomidate (Amidate) Confirm Administered Dose 40 mg IVPUSH .STK-MED ONE Stop: 07/31/16 10:06 Fentanyl (Sublimaze) Confirm Administered Dose 250 mcg .ROUTE .STK-MED ONE Stop: 07/31/16 10:07 Fentanyl (Sublimaze) 50 mcg IVPUSH SEECOMMENT PRN PRN Reason: Pain (moderate 4-6) Last Admin: 07/31/16 12:35 Dose: 50 mcg Furosemide (Lasix) Confirm Administered Dose 40 mg .ROUTE .STK-MED ONE Stop: 07/31/16 11:19 Glycopyrrolate () Confirm Administered Dose 1 mg .ROUTE .STK-MED ONE Stop: 07/31/16 11:27 Hydromorphone HCl (Dilaudid) Confirm Administered Dose 2 mg .ROUTE .STK-MED ONE Stop: 07/31/16 11:14 Sodium Chloride (Normal Saline) 1,000 mls @ 999 mls/hr IV .Bolus ONE Stop: 07/31/16 10:00 Last Admin: 07/31/16 09:16 Dose: 999 mls/hr Lactated Ringer's (Ringers, Lactated) 1,000 mls @ 125 mls/hr IV ASDIRECTED [facility] Last Admin: 07/31/16 10:17 Dose: 125 mls/hr Sodium Chloride (Normal Saline) Confirm Administered Dose 20 mls @ as directed .ROUTE .STK-MED ONE Stop: 07/31/16 10:42 Sodium Chloride (Normal Saline) Confirm Administered Dose 20 mls @ as directed .ROUTE .STK-MED ONE Stop: 07/31/16 11:30 Lactated Ringer's (Ringers, Lactated) 1,000 mls @ 125 mls/hr IV ASDIRECTED [facility] Last Admin: 07/31/16 21:55 Dose: 125 mls/hr Iopamidol (Isovue-370 (76%)) 100 ml IVPUSH ONETIME STA Stop: 07/31/16 09:22 Last Admin: 07/31/16 09:21 Dose: 100 ml Metoclopramide HCl (Reglan) 10 mg IV Q6H [facility] Last Admin: 07/31/16 18:33 Dose: Not Given Midazolam HCl (Versed 1 Mg/Ml) Confirm Administered Dose 2 mg .ROUTE .STK-MED ONE Stop: 07/31/16 10:06 Morphine Sulfate (Morphine Special Procedures Nurse 30 Mg In 30 Ml) 30 mg IV SEECOMMENT [facility] Morphine Sulfate (Morphine Special Procedures Nurse 30 Mg In 30 Ml) 30 mg IV ASDIRECTED [facility] PRN Reason: Protocol Last Admin: 07/31/16 13:05 Dose: 30 mg Neostigmine Methylsulfate (Neostigmine) Confirm Administered Dose 5 mg .ROUTE .STK-MED ONE Stop: 07/31/16 11:27 Ondansetron HCl (Zofran) 4 mg IVPUSH ONETIME ONE Stop: 07/31/16 09:04 Last Admin: 07/31/16 09:13 Dose: 4 mg Ondansetron HCl (Zofran) 4 mg IVPUSH Q6H PRN PRN Reason: Nausea/Vomiting Phenylephrine HCl (Gus-Synephrine) Confirm Administered Dose 10 mg .ROUTE .STK- MED ONE Stop: 07/31/16 11:27 Propofol (Diprivan 20 Ml) Confirm Administered Dose 200 mg .ROUTE .STK-MED ONE Stop: 07/31/16 10:15 Succinylcholine Chloride (Succinylcholine In Ns Pf) Confirm Administered Dose 200 mg .ROUTE .STK-MED ONE Stop: 07/31/16 10:06 - Exam Wound/Incisions: healing well, no drainage. No: erythema Quality Assessment: supplemental oxygen General: alert, oriented, cooperative, no acute distress HEENT: Pupils equal, Pupils reactive, EOMI Neck: supple Lungs: Clear to auscultation, Normal respiratory effort Cardiovascular: Regular Rate, Regular Rhythm. No: Tachycardia Abdomen: soft, no tenderness, no distension, abnormal bowel sounds (hypoactive) . No: rigidity, rebound, guarding Extremities: no edema, normal pulses Skin: warm, dry, intact Neurological: no new focal deficit, normal gait Psy/Mental Status: alert, normal affect, normal mood - Problem List & Annotations (1) Spleen massive parenchymal disruption without open wound into cavity SNOMED Code(s): 33696016 Code(s): S36.09XA - OTHER INJURY OF SPLEEN, INITIAL ENCOUNTER Status: Acute Priority: High Current Visit: Yes Qualifiers: Encounter type: initial encounter Qualified Code(s): S36.09XA - Other injury of spleen, initial encounter - Problem List Review Problem List Initiated/Reviewed/Updated: Yes - My Orders Last 24 Hours: Active Orders 24 hr Category Date Time Status Transfer Patient (Change bed) [ADT] Routine ADT 08/01/16 08:10 Ordered Ambulate [RC] ASDIRECTED Care 08/01/16 08:12 Active May Shower [RC] ASDIRECTED Care 08/02/16 08:25 Ordered NPO Now [Nothing per Oral Now Diet] [DIET] Diet 08/01/16 Dinner Active Ondansetron [Zofran] Med 08/01/16 14:19 Active 4 mg IVPUSH Q6H PRN Arterial Line Discontinue [OM.PC] Routine Oth 08/01/16 08:11 Ordered NG [Nasogastric Orogastric Tube Removal] [OM.PC] Oth 08/01/16 08:11 Ordered Routine Medication Orders Fentanyl (Sublimaze) 50 mcg IVPUSH SEECOMMENT PRN PRN Reason: Pain (moderate 4-6) Lactated Ringer's (Ringers, Lactated) 1,000 mls @ 125 mls/hr IV ASDIRECTED [facility] Last Admin: 08/02/16 05:57 Dose: 125 mls/hr Infusion: 08/02/16 05:48 Dose: 125 mls/hr Admin: 08/01/16 21:48 Dose: 125 mls/hr Infusion: 08/01/16 21:48 Dose: 125 mls/hr Admin: 08/01/16 13:52 Dose: 125 mls/hr Infusion: 08/01/16 13:51 Dose: 125 mls/hr Admin: 08/01/16 05:51 Dose: 125 mls/hr Metoclopramide HCl (Reglan) 10 mg IV Q6H [facility] Last Admin: 08/02/16 04:55 Dose: 10 mg Admin: 08/01/16 23:30 Dose: 10 mg Admin: 08/01/16 17:49 Dose: 10 mg Admin: 08/01/16 10:28 Dose: 10 mg Admin: 08/01/16 04:50 Dose: 10 mg Admin: 07/31/16 22:56 Dose: 10 mg Morphine Sulfate (Morphine Special Procedures Nurse 30 Mg In 30 Ml) 30 mg IV ASDIRECTED [facility] PRN Reason: Protocol Last Admin: 08/01/16 13:40 Dose: 30 mg Admin: 07/31/16 22:56 Dose: 30 mg Ondansetron HCl (Zofran) 4 mg IVPUSH Q6H PRN PRN Reason: Nausea/Vomiting Last Admin: 08/01/16 12:55 Dose: 4 mg Ondansetron HCl (Zofran) 4 mg IVPUSH Q6H PRN PRN Reason: Nausea/Vomiting - Assessment Assessment (Free Text/Narrative):: Patient remains hemodynamically stable. No appetite yet. No N/V. Dressing and On-Q removed. Incision clean and dry. - Plan Plan (Free Text/Narrative):: Shower. Increase activity. Keep NPO except for ice chips.
[2016-08-02] MEDS: Benzocaine/Cetylpyridinium/Menthol Lozenge MUCMEM PRN ×2 (18:53→18:57)
[2016-08-02] MEDS: Morphine PF 30 MG/30 ML PCA Vial IV SCH (21:42)
[2016-08-03] MEDS: Metoclopramide 10 MG/2 ML SDV IV SCH ×4 (04:37→22:24)
[2016-08-03 05:18] LABS: CHLORIDE,CL 106 mmol/L (98-110); SODIUM,NA 140 mmol/L (136-146)
[2016-08-03] MEDS: Lactated Ringers 1,000 ML IV SCH ×3 (06:07→22:34)
--- NOTE | 2016-08-03 11:41 | PCM.SURGPN ---
- General Info Date of Service: 08/03/16 POD#: 3 Post-Op Diagnosis: Traumatic rupture of spleen Functional Status: Reports: pain controlled, ambulating, urinating, incentive spirometry. Denies: new symptoms - Review of Systems General: Reports: Weakness, Fatigue. Denies: Fever HEENT: Reports: no symptoms Pulmonary: Denies: shortness of breath, cough, sputum Cardiovascular: Denies: Chest Pain, Palpitations Gastrointestinal: Reports: Abdominal pain (Incisional). Denies: Difficulty swallowing, Flatus, Nausea, Vomiting Genitourinary: Reports: no symptoms Musculoskeletal: Reports: no symptoms Skin: Reports: no symptoms Neurological: Reports: No Symptoms Psychiatric: Reports: no symptoms - Patient Data Vitals - most recent: Last Vital Signs Temp 98.4 F 08/03/16 07:30 Pulse 88 08/03/16 08:05 Resp 15 08/03/16 07:30 BP 154/76 H 08/03/16 08:05 Pulse Ox 95 08/03/16 08:05 Weight - most recent: 220 lb I&O - last 24 hours: Intake & Output 08/02/16 08/03/16 08/03/16 19:59 03:59 11:59 Intake Total 1371 545 960 Output Total 1100 1325 Balance 271 545 -365 Lab Results last 24 hrs: Laboratory Results - last 24 hr 08/03/16 08/03/16 Range/Units 04:11 04:11 WBC 14.05 H (4.0-11.0) K/uL RBC 3.68 L (4.50-5.90) M/uL Hgb 10.9 L (13.0-17.0) g/dL Hct 33.1 L (38.0-50.0) % MCV 89.9 (80.0-98.0) fL MCH 29.6 (27.0-32.0) pg MCHC 32.9 (31.0-37.0) g/dL RDW Std Deviation 46.5 (28.0-62.0) fl RDW Coeff of Gustavo 14 (11.0-15.0) % Plt Count 203 (150-400) K/uL MPV 10.50 (7.40-12.00) fL Neut % (Auto) 83.8 H (48.0-80.0) % Lymph % (Auto) 3.8 L (16.0-40.0) % [place] % (Auto) 11.4 (0.0-15.0) % Eos % (Auto) 0.9 (0.0-7.0) % Baso % (Auto) 0.1 (0.0-1.5) % Neut # (Auto) 11.8 H (1.4-5.7) K/uL Lymph # (Auto) 0.5 L (0.6-2.4) K/uL [place] # (Auto) 1.6 H (0.0-0.8) K/uL Eos # (Auto) 0.1 (0.0-0.7) K/uL Baso # (Auto) 0.0 (0.0-0.1) K/uL Nucleated RBC % 0.4 /100WBC Nucleated RBCs # 0 K/uL Sodium 140 (136-146) mmol/L Potassium 4.0 (3.5-5.1) mmol/L Chloride 106 (98-110) mmol/L Carbon Dioxide 25 (21-31) mmol/L BUN 13 (6.0-23.0) mg/dL Creatinine 1.0 (0.6-1.5) mg/dL Est Cr Clr Drug Dosing 95.24 mL/min Estimated GFR (MDRD) > 60.0 ml/min Glucose 98 (60-110) mg/dL Calcium 8.0 L (8.8-10.8) mg/dL Med Orders - Current: Current Medications Benzocaine/Menthol (Cepacol Sore Throat) 1 lozenge MUCMEM ASDIRECTED PRN PRN Reason: Sore Throat Last Admin: 08/02/16 18:57 Dose: 1 lozenge Fentanyl (Sublimaze) 50 mcg IVPUSH SEECOMMENT PRN PRN Reason: Pain (moderate 4-6) Lactated Ringer's (Ringers, Lactated) 1,000 mls @ 125 mls/hr IV ASDIRECTED [facility] Last Admin: 08/03/16 06:07 Dose: 125 mls/hr Metoclopramide HCl (Reglan) 10 mg IV Q6H [facility] Last Admin: 08/03/16 04:37 Dose: 10 mg Morphine Sulfate (Morphine Financial Services Assistant 30 Mg In 30 Ml) 30 mg IV ASDIRECTED [facility] PRN Reason: Protocol Last Admin: 08/02/16 21:42 Dose: 30 mg Ondansetron HCl (Zofran) 4 mg IVPUSH Q6H PRN PRN Reason: Nausea/Vomiting Last Admin: 08/01/16 12:55 Dose: 4 mg Ondansetron HCl (Zofran) 4 mg IVPUSH Q6H PRN PRN Reason: Nausea/Vomiting Discontinued Medications Bupivacaine HCl (Sensorcaine-Mpf 0.5%) Confirm Administered Dose 110 ml .ROUTE .STK-MED ONE Stop: 07/31/16 10:55 Cefazolin Sodium (Ancef) Confirm Administered Dose 2 gm .ROUTE .STK-MED ONE Stop: 07/31/16 10:42 Ephedrine Sulfate (Ephedrine Sulfate) Confirm Administered Dose 50 mg .ROUTE .STK-MED ONE Stop: 07/31/16 11:27 Etomidate (Amidate) Confirm Administered Dose 40 mg IVPUSH .STK-MED ONE Stop: 07/31/16 10:06 Fentanyl (Sublimaze) Confirm Administered Dose 250 mcg .ROUTE .STK-MED ONE Stop: 07/31/16 10:07 Fentanyl (Sublimaze) 50 mcg IVPUSH SEECOMMENT PRN PRN Reason: Pain (moderate 4-6) Last Admin: 07/31/16 12:35 Dose: 50 mcg Furosemide (Lasix) Confirm Administered Dose 40 mg .ROUTE .STK-MED ONE Stop: 07/31/16 11:19 Glycopyrrolate () Confirm Administered Dose 1 mg .ROUTE .STK-MED ONE Stop: 07/31/16 11:27 Hydromorphone HCl (Dilaudid) Confirm Administered Dose 2 mg .ROUTE .STK-MED ONE Stop: 07/31/16 11:14 Sodium Chloride (Normal Saline) 1,000 mls @ 999 mls/hr IV .Bolus ONE Stop: 07/31/16 10:00 Last Admin: 07/31/16 09:16 Dose: 999 mls/hr Lactated Ringer's (Ringers, Lactated) 1,000 mls @ 125 mls/hr IV ASDIRECTED [facility] Last Admin: 07/31/16 10:17 Dose: 125 mls/hr Sodium Chloride (Normal Saline) Confirm Administered Dose 20 mls @ as directed .ROUTE .STK-MED ONE Stop: 07/31/16 10:42 Sodium Chloride (Normal Saline) Confirm Administered Dose 20 mls @ as directed .ROUTE .STK-MED ONE Stop: 07/31/16 11:30 Lactated Ringer's (Ringers, Lactated) 1,000 mls @ 125 mls/hr IV ASDIRECTED [facility] Last Admin: 07/31/16 21:55 Dose: 125 mls/hr Iopamidol (Isovue-370 (76%)) 100 ml IVPUSH ONETIME STA Stop: 07/31/16 09:22 Last Admin: 07/31/16 09:21 Dose: 100 ml Metoclopramide HCl (Reglan) 10 mg IV Q6H [facility] Last Admin: 07/31/16 18:33 Dose: Not Given Midazolam HCl (Versed 1 Mg/Ml) Confirm Administered Dose 2 mg .ROUTE .STK-MED ONE Stop: 07/31/16 10:06 Morphine Sulfate (Morphine Financial Services Assistant 30 Mg In 30 Ml) 30 mg IV SEECOMMENT [facility] Morphine Sulfate (Morphine Financial Services Assistant 30 Mg In 30 Ml) 30 mg IV ASDIRECTED [facility] PRN Reason: Protocol Last Admin: 07/31/16 13:05 Dose: 30 mg Neostigmine Methylsulfate (Neostigmine) Confirm Administered Dose 5 mg .ROUTE .[facility]-MED ONE Stop: 07/31/16 11:27 Ondansetron HCl (Zofran) 4 mg IVPUSH ONETIME ONE Stop: 07/31/16 09:04 Last Admin: 07/31/16 09:13 Dose: 4 mg Ondansetron HCl (Zofran) 4 mg IVPUSH Q6H PRN PRN Reason: Nausea/Vomiting Phenylephrine HCl (Gus-Synephrine) Confirm Administered Dose 10 mg .ROUTE .STK- MED ONE Stop: 07/31/16 11:27 Propofol (Diprivan 20 Ml) Confirm Administered Dose 200 mg .ROUTE .STK-MED ONE Stop: 07/31/16 10:15 Succinylcholine Chloride (Succinylcholine In Ns Pf) Confirm Administered Dose 200 mg .ROUTE .STK-MED ONE Stop: 07/31/16 10:06 - Exam Wound/Incisions: healing well, no drainage. No: erythema Quality Assessment: supplemental oxygen General: oriented, cooperative, no acute distress HEENT: Pupils equal, Pupils reactive. No: Scleral icterus Neck: supple Lungs: Clear to auscultation, Normal respiratory effort Cardiovascular: Regular Rate, Regular Rhythm, Tachycardia Abdomen: bowel sounds present (Hypoactive), soft, no tenderness, no distension Extremities: no edema, normal pulses Skin: warm, dry, intact Neurological: no new focal deficit Psy/Mental Status: alert, normal affect, normal mood - Problem List & Annotations (1) Spleen massive parenchymal disruption without open wound into cavity SNOMED Code(s): 95200787 Code(s): S36.09XA - OTHER INJURY OF SPLEEN, INITIAL ENCOUNTER Status: Acute Priority: High Current Visit: Yes Qualifiers: Encounter type: initial encounter Qualified Code(s): S36.09XA - Other injury of spleen, initial encounter - Problem List Review Problem List Initiated/Reviewed/Updated: Yes - My Orders Last 24 Hours: Active Orders 24 hr Category Date Time Status Full Liquid Diet [DIET] Diet 08/03/16 Lunch Ordered Acetaminophen/HYDROcodone [[place] 325-5 MG] Med 08/03/16 11:37 Ordered 1 - 2 tab PO Q4H PRN Benzocaine/Cetylpyrd/Menthol [Cepacol Sore Throat] Med 08/02/16 18:17 Active 1 lozenge MUCMEM ASDIRECTED PRN Medication Orders Benzocaine/Menthol (Cepacol Sore Throat) 1 lozenge MUCMEM ASDIRECTED PRN PRN Reason: Sore Throat Last Admin: 08/02/16 18:57 Dose: 1 lozenge Admin: 08/02/16 18:53 Dose: 1 lozenge Fentanyl (Sublimaze) 50 mcg IVPUSH SEECOMMENT PRN PRN Reason: Pain (moderate 4-6) Lactated Ringer's (Ringers, Lactated) 1,000 mls @ 125 mls/hr IV ASDIRECTED [facility] Last Admin: 08/03/16 06:07 Dose: 125 mls/hr Infusion: 08/03/16 06:07 Dose: 125 mls/hr Admin: 08/02/16 22:15 Dose: 125 mls/hr Infusion: 08/02/16 21:55 Dose: 125 mls/hr Admin: 08/02/16 13:55 Dose: 125 mls/hr Infusion: 08/02/16 13:55 Dose: 125 mls/hr Admin: 08/02/16 05:57 Dose: 125 mls/hr Infusion: 08/02/16 05:48 Dose: 125 mls/hr Admin: 08/01/16 21:48 Dose: 125 mls/hr Infusion: 08/01/16 21:48 Dose: 125 mls/hr Admin: 08/01/16 13:52 Dose: 125 mls/hr Infusion: 08/01/16 13:51 Dose: 125 mls/hr Admin: 08/01/16 05:51 Dose: 125 mls/hr Metoclopramide HCl (Reglan) 10 mg IV Q6H [facility] Last Admin: 08/03/16 04:37 Dose: 10 mg Admin: 08/02/16 22:20 Dose: 10 mg Admin: 08/02/16 17:27 Dose: 10 mg Admin: 08/02/16 11:39 Dose: 10 mg Admin: 08/02/16 04:55 Dose: 10 mg Admin: 08/01/16 23:30 Dose: 10 mg Admin: 08/01/16 17:49 Dose: 10 mg Admin: 08/01/16 10:28 Dose: 10 mg Admin: 08/01/16 04:50 Dose: 10 mg Admin: 07/31/16 22:56 Dose: 10 mg Morphine Sulfate (Morphine Financial Services Assistant 30 Mg In 30 Ml) 30 mg IV ASDIRECTED [facility] PRN Reason: Protocol Last Admin: 08/02/16 21:42 Dose: 30 mg Admin: 08/01/16 13:40 Dose: 30 mg Admin: 07/31/16 22:56 Dose: 30 mg Ondansetron HCl (Zofran) 4 mg IVPUSH Q6H PRN PRN Reason: Nausea/Vomiting Last Admin: 08/01/16 12:55 Dose: 4 mg Ondansetron HCl (Zofran) 4 mg IVPUSH Q6H PRN PRN Reason: Nausea/Vomiting - Assessment Assessment (Free Text/Narrative):: Labs reviewed. Hgb 10.9--likely dilutional. No new signs of blood loss. Hungry and would like to try eating. - Plan Plan (Free Text/Narrative):: Full liquids. PO analgesics.
[2016-08-03] MEDS: Acetaminophen/HYDROcodone 325-5 MG Tab PO PRN ×3 (13:27→22:24)
[2016-08-04] MEDS: Acetaminophen/HYDROcodone 325-5 MG Tab PO PRN ×5 (04:18→20:24)
[2016-08-04] MEDS: Metoclopramide 10 MG/2 ML SDV IV SCH ×4 (04:19→23:10)
[2016-08-04] MEDS: Lactated Ringers 1,000 ML IV SCH ×3 (07:19→23:10)
[2016-08-04] MEDS ORDERED: Morphine 10 MG/ML Syringe IVPUSH PRN (12:01)
[2016-08-04] MEDS ORDERED: Pneumococcal Polyvalent-23 Vaccine 0.5 ML SDV IM ONE (12:30)
--- NOTE | 2016-08-04 18:45 | PCM.SN ---
Arterial Line Insertion - Arterial Line Insertion Arterial Line Indication: hemodynamic monitoring Site: radial (R) Prep: Sterile Drapes, Alcohol Gauge: 20Fr Ultrasound guided: No Secured with suture: No Dressing applied: by provider, op-site dressing Complications: No Arterial line comment: Difficult placement due to hypotension. Two attempts made by Singh Sanches CRNA and two attempts by Claudia De Leon CRNA. Successful placement on 4th attempt by Claudia De Leon CRNA.
[2016-08-05] MEDS: Acetaminophen/HYDROcodone 325-5 MG Tab PO PRN ×5 (02:12→19:43)
[2016-08-05] MEDS: Metoclopramide 10 MG/2 ML SDV IV SCH (05:07)
[2016-08-05] MEDS: Lactated Ringers 1,000 ML IV SCH (07:31)
[2016-08-05] MEDS ORDERED: Sodium Chloride 0.9% 2.5 ML Syringe FLUSH PRN (07:51)
[2016-08-05] MEDS ORDERED: Bisacodyl 10 MG Supp RECTAL ONE (07:51)
[2016-08-05] MEDS ORDERED: Sodium Chloride 0.9% 10 ML Syringe FLUSH PRN (07:51)
--- NOTE | 2016-08-05 07:57 | PCM.SURGPN ---
- General Info Date of Service: 08/05/16 POD#: 5 Post-Op Diagnosis: Traumatic rupture of spleen Functional Status: Reports: pain controlled, tolerating diet, ambulating, urinating - Review of Systems General: Reports: Appetite (Improving). Denies: Fever, Chills, Night Sweats HEENT: Reports: no symptoms Pulmonary: Denies: shortness of breath, pleuritic chest pain, cough Cardiovascular: Denies: Chest Pain, Palpitations Gastrointestinal: Reports: Abdominal pain (Incisional all my), Flatus (Patient has been passing gas since yesterday. No bowel movement yet.). Denies: Diarrhea, Nausea, Vomiting Genitourinary: Denies: dysuria, frequency, burning, pain, urgency Musculoskeletal: Reports: no symptoms Skin: Denies: cyanosis, jaundice, mottled, pallor, diaphoresis Neurological: Reports: No Symptoms Psychiatric: Reports: no symptoms - Patient Data Vitals - most recent: Last Vital Signs Temp 97.8 F 08/05/16 04:00 Pulse 85 08/05/16 04:00 Resp 16 08/05/16 04:00 BP 155/98 H 08/05/16 04:00 Pulse Ox 93 L 08/05/16 04:00 Weight - most recent: 220 lb I&O - last 24 hours: Intake & Output 08/04/16 08/05/16 08/05/16 19:59 03:59 11:59 Intake Total 2019 2082 Output Total 2325 425 Balance -305 1658 Med Orders - Current: Current Medications Hydrocodone Bitart/Acetaminophen ([place] 325-5 Mg) 1 - 2 tab PO Q4H PRN PRN Reason: Pain (moderate 4-6) Last Admin: 08/05/16 06:19 Dose: 2 tab Benzocaine/Menthol (Cepacol Sore Throat) 1 lozenge MUCMEM ASDIRECTED PRN PRN Reason: Sore Throat Last Admin: 08/02/16 18:57 Dose: 1 lozenge Fentanyl (Sublimaze) 50 mcg IVPUSH SEECOMMENT PRN PRN Reason: Pain (moderate 4-6) Lactated Ringer's (Ringers, Lactated) 1,000 mls @ 125 mls/hr IV ASDIRECTED [facility] Last Admin: 08/05/16 07:31 Dose: 125 mls/hr Metoclopramide HCl (Reglan) 10 mg IV Q6H [facility] Last Admin: 08/05/16 05:07 Dose: 10 mg Morphine Sulfate (Morphine) 1 - 5 mg IVPUSH Q30M PRN PRN Reason: Pain (severe 7-10) Ondansetron HCl (Zofran) 4 mg IVPUSH Q6H PRN PRN Reason: Nausea/Vomiting Last Admin: 08/01/16 12:55 Dose: 4 mg Ondansetron HCl (Zofran) 4 mg IVPUSH Q6H PRN PRN Reason: Nausea/Vomiting Discontinued Medications Bupivacaine HCl (Sensorcaine-Mpf 0.5%) Confirm Administered Dose 110 ml .ROUTE .STK-MED ONE Stop: 07/31/16 10:55 Cefazolin Sodium (Ancef) Confirm Administered Dose 2 gm .ROUTE .STK-MED ONE Stop: 07/31/16 10:42 Ephedrine Sulfate (Ephedrine Sulfate) Confirm Administered Dose 50 mg .ROUTE .STK-MED ONE Stop: 07/31/16 11:27 Etomidate (Amidate) Confirm Administered Dose 40 mg IVPUSH .STK-MED ONE Stop: 07/31/16 10:06 Fentanyl (Sublimaze) Confirm Administered Dose 250 mcg .ROUTE .STK-MED ONE Stop: 07/31/16 10:07 Fentanyl (Sublimaze) 50 mcg IVPUSH SEECOMMENT PRN PRN Reason: Pain (moderate 4-6) Last Admin: 07/31/16 12:35 Dose: 50 mcg Furosemide (Lasix) Confirm Administered Dose 40 mg .ROUTE .STK-MED ONE Stop: 07/31/16 11:19 Glycopyrrolate () Confirm Administered Dose 1 mg .ROUTE .STK-MED ONE Stop: 07/31/16 11:27 Hydromorphone HCl (Dilaudid) Confirm Administered Dose 2 mg .ROUTE .STK-MED ONE Stop: 07/31/16 11:14 Sodium Chloride (Normal Saline) 1,000 mls @ 999 mls/hr IV .Bolus ONE Stop: 07/31/16 10:00 Last Admin: 07/31/16 09:16 Dose: 999 mls/hr Lactated Ringer's (Ringers, Lactated) 1,000 mls @ 125 mls/hr IV ASDIRECTED [facility] Last Admin: 07/31/16 10:17 Dose: 125 mls/hr Sodium Chloride (Normal Saline) Confirm Administered Dose 20 mls @ as directed .ROUTE .STK-MED ONE Stop: 07/31/16 10:42 Sodium Chloride (Normal Saline) Confirm Administered Dose 20 mls @ as directed .ROUTE .STK-MED ONE Stop: 07/31/16 11:30 Lactated Ringer's (Ringers, Lactated) 1,000 mls @ 125 mls/hr IV ASDIRECTED [facility] Last Admin: 07/31/16 21:55 Dose: 125 mls/hr Iopamidol (Isovue-370 (76%)) 100 ml IVPUSH ONETIME STA Stop: 07/31/16 09:22 Last Admin: 07/31/16 09:21 Dose: 100 ml Metoclopramide HCl (Reglan) 10 mg IV Q6H [facility] Last Admin: 07/31/16 18:33 Dose: Not Given Midazolam HCl (Versed 1 Mg/Ml) Confirm Administered Dose 2 mg .ROUTE .ST-MED ONE Stop: 07/31/16 10:06 Morphine Sulfate (Morphine Cyber Crime Investigator 30 Mg In 30 Ml) 30 mg IV SEECOMMENT [facility] Morphine Sulfate (Morphine Cyber Crime Investigator 30 Mg In 30 Ml) 30 mg IV ASDIRECTED [facility] PRN Reason: Protocol Last Admin: 07/31/16 13:05 Dose: 30 mg Morphine Sulfate (Morphine Cyber Crime Investigator 30 Mg In 30 Ml) 30 mg IV ASDIRECTED [facility] PRN Reason: Protocol Last Admin: 08/02/16 21:42 Dose: 30 mg Neostigmine Methylsulfate (Neostigmine) Confirm Administered Dose 5 mg .ROUTE .STK-MED ONE Stop: 07/31/16 11:27 Ondansetron HCl (Zofran) 4 mg IVPUSH ONETIME ONE Stop: 07/31/16 09:04 Last Admin: 07/31/16 09:13 Dose: 4 mg Ondansetron HCl (Zofran) 4 mg IVPUSH Q6H PRN PRN Reason: Nausea/Vomiting Phenylephrine HCl (Gus-Synephrine) Confirm Administered Dose 10 mg .ROUTE .STK- MED ONE Stop: 07/31/16 11:27 Pneumococcal Polyvalent Vaccine (Pneumovax 23) 0.5 ml IM .ONCE ONE Stop: 08/04/16 12:31 Last Admin: 08/04/16 12:57 Dose: 0.5 ml Propofol (Diprivan 20 Ml) Confirm Administered Dose 200 mg .ROUTE .STK-MED ONE Stop: 07/31/16 10:15 Succinylcholine Chloride (Succinylcholine In Ns Pf) Confirm Administered Dose 200 mg .ROUTE .STK-MED ONE Stop: 07/31/16 10:06 - Exam Wound/Incisions: healing well, no drainage. No: erythema Quality Assessment: DVT prophylaxis. No: skin breakdown General: alert, oriented, cooperative, no acute distress HEENT: Pupils equal, Pupils reactive, EOMI. No: Scleral icterus Neck: supple, trachea midline Lungs: Clear to auscultation, Normal respiratory effort Cardiovascular: Regular Rate, Regular Rhythm, No Murmurs. No: Tachycardia Abdomen: bowel sounds present (Hypoactive), soft, no tenderness, no distension. No: rigidity, rebound, guarding Extremities: no edema, normal pulses Skin: warm, dry, intact Neurological: no new focal deficit Psy/Mental Status: alert, normal affect, normal mood - Problem List & Annotations (1) Spleen massive parenchymal disruption without open wound into cavity SNOMED Code(s): 66185927 Code(s): S36.09XA - OTHER INJURY OF SPLEEN, INITIAL ENCOUNTER Status: Acute Priority: High Current Visit: Yes Qualifiers: Encounter type: initial encounter Qualified Code(s): S36.09XA - Other injury of spleen, initial encounter - Problem List Review Problem List Initiated/Reviewed/Updated: Yes - My Orders Last 24 Hours: Active Orders 24 hr Category Date Time Status Communication Order [RC] DAILY Care 08/04/16 14:56 Active Soft Diet [DIET] Diet 08/05/16 Breakfast Active Bisacodyl [Dulcolax] Med 08/05/16 07:51 Once 10 mg RECTAL ONETIME ONE Morphine Med 08/04/16 12:01 Active 1 - 5 mg IVPUSH Q30M PRN Sodium Chloride 0.9% [Saline Flush] Med 08/05/16 07:51 Ordered 10 ml FLUSH ASDIRECTED PRN Sodium Chloride 0.9% [Saline Flush] Med 08/05/16 07:51 Ordered 2.5 ml FLUSH ASDIRECTED PRN Saline Lock Insert [OM.PC] Routine Oth 08/05/16 07:51 Ordered Medication Orders Hydrocodone Bitart/Acetaminophen ([place] 325-5 Mg) 1 - 2 tab PO Q4H PRN PRN Reason: Pain (moderate 4-6) Last Admin: 08/05/16 06:19 Dose: 2 tab Admin: 08/05/16 02:12 Dose: 2 tab Admin: 08/04/16 20:24 Dose: 2 tab Admin: 08/04/16 16:48 Dose: 2 tab Admin: 08/04/16 12:30 Dose: 2 tab Admin: 08/04/16 08:28 Dose: 2 tab Admin: 08/04/16 04:18 Dose: 2 tab Admin: 08/03/16 22:24 Dose: 2 tab Admin: 08/03/16 18:11 Dose: 2 tab Admin: 08/03/16 13:27 Dose: 2 tab Benzocaine/Menthol (Cepacol Sore Throat) 1 lozenge MUCMEM ASDIRECTED PRN PRN Reason: Sore Throat Last Admin: 08/02/16 18:57 Dose: 1 lozenge Admin: 08/02/16 18:53 Dose: 1 lozenge Fentanyl (Sublimaze) 50 mcg IVPUSH SEECOMMENT PRN PRN Reason: Pain (moderate 4-6) Lactated Ringer's (Ringers, Lactated) 1,000 mls @ 125 mls/hr IV ASDIRECTED [facility] Last Admin: 08/05/16 07:31 Dose: 125 mls/hr Infusion: 08/05/16 07:10 Dose: 125 mls/hr Admin: 08/04/16 23:10 Dose: 125 mls/hr Infusion: 08/04/16 23:10 Dose: 125 mls/hr Admin: 08/04/16 15:21 Dose: 125 mls/hr Infusion: 08/04/16 15:19 Dose: 125 mls/hr Admin: 08/04/16 07:19 Dose: 125 mls/hr Infusion: 08/04/16 06:34 Dose: 125 mls/hr Admin: 08/03/16 22:34 Dose: 125 mls/hr Infusion: 08/03/16 22:29 Dose: 125 mls/hr Admin: 08/03/16 14:29 Dose: 125 mls/hr Infusion: 08/03/16 14:07 Dose: 125 mls/hr Admin: 08/03/16 06:07 Dose: 125 mls/hr Infusion: 08/03/16 06:07 Dose: 125 mls/hr Admin: 08/02/16 22:15 Dose: 125 mls/hr Infusion: 08/02/16 21:55 Dose: 125 mls/hr Admin: 08/02/16 13:55 Dose: 125 mls/hr Infusion: 08/02/16 13:55 Dose: 125 mls/hr Admin: 08/02/16 05:57 Dose: 125 mls/hr Infusion: 08/02/16 05:48 Dose: 125 mls/hr Admin: 08/01/16 21:48 Dose: 125 mls/hr Infusion: 08/01/16 21:48 Dose: 125 mls/hr Admin: 08/01/16 13:52 Dose: 125 mls/hr Infusion: 08/01/16 13:51 Dose: 125 mls/hr Admin: 08/01/16 05:51 Dose: 125 mls/hr Metoclopramide HCl (Reglan) 10 mg IV Q6H [facility] Last Admin: 08/05/16 05:07 Dose: 10 mg Admin: 08/04/16 23:10 Dose: 10 mg Admin: 08/04/16 16:49 Dose: 10 mg Admin: 08/04/16 11:17 Dose: 10 mg Admin: 08/04/16 04:19 Dose: 10 mg Admin: 08/03/16 22:24 Dose: 10 mg Admin: 08/03/16 16:22 Dose: 10 mg Admin: 08/03/16 11:45 Dose: 10 mg Admin: 08/03/16 04:37 Dose: 10 mg Admin: 08/02/16 22:20 Dose: 10 mg Admin: 08/02/16 17:27 Dose: 10 mg Admin: 08/02/16 11:39 Dose: 10 mg Admin: 08/02/16 04:55 Dose: 10 mg Admin: 08/01/16 23:30 Dose: 10 mg Admin: 08/01/16 17:49 Dose: 10 mg Admin: 08/01/16 10:28 Dose: 10 mg Admin: 08/01/16 04:50 Dose: 10 mg Admin: 07/31/16 22:56 Dose: 10 mg Morphine Sulfate (Morphine) 1 - 5 mg IVPUSH Q30M PRN PRN Reason: Pain (severe 7-10) Ondansetron HCl (Zofran) 4 mg IVPUSH Q6H PRN PRN Reason: Nausea/Vomiting Last Admin: 08/01/16 12:55 Dose: 4 mg Ondansetron HCl (Zofran) 4 mg IVPUSH Q6H PRN PRN Reason: Nausea/Vomiting - Assessment Assessment (Free Text/Narrative):: When seen yesterday patient had not been passing any gas. His appetite was slowly improving, but he was still not requesting any increase in diet. Today patient says he has passed gas multiple times. No bowel movement. No nausea or vomiting. He did get hungry last night and his diet has been advanced to a soft diet. He was also given the Pneumovax vaccine yesterday. - Plan Plan (Free Text/Narrative):: Dulcolax suppository today. If he does have a, bowel movement will let him go home later today. Prescription written for pain meds so they can get this filled today.
[2016-08-05] MEDS: Metoclopramide 10 MG Tab PO SCH ×3 (10:36→20:22)
[2016-08-06] MEDS: Acetaminophen/HYDROcodone 325-5 MG Tab PO PRN ×2 (04:31→08:44)
[2016-08-06] MEDS: Metoclopramide 10 MG Tab PO SCH (06:32)
--- NOTE | 2016-08-06 08:11 | PCM.DCSUM1 ---
Discharge Summary - Hospital Course Free Text/Narrative:: 60 y/o male who suffered a blunt splenic injury requiring emergent splenectomy. - Discharge Data Discharge Date: 08/06/16 Discharge Disposition: Home, Self-Care 01 Condition: Fair - Discharge Diagnosis/Problem(s) (1) Spleen massive parenchymal disruption without open wound into cavity SNOMED Code(s): 74065511 ICD Code: S36.09XA - OTHER INJURY OF SPLEEN, INITIAL ENCOUNTER Status: Acute Priority: High Current Visit: Yes Qualifiers: Encounter type: initial encounter Qualified Code(s): S36.09XA - Other injury of spleen, initial encounter - Patient Summary/Data Operative Procedure(s) Performed: Splenectomy - Patient Instructions Diet: Usual Diet as Tolerated Activity: No Lifting Over 25 Pounds (for 6 weeks) Driving: Do Not Drive (for 24-48 hours and until able to depress the brake pedal for a sudden stop) Showering/Bathing: June Shower Wound/Incision Care: Keep Operative Site/Wound Site Clean and Dry Notify Provider of: Fever, Increased Pain, Nausea and/or Vomiting Other/Special Instructions: See Dr. Geronimo on 08/10 as scheduled. - Discharge Plan Prescriptions/Med Rec: Hydrocodone/Acetaminophen [[place] 5-325 Tablet] 1 each PO Q6H PRN #20 tablet PRN Reason: Pain Home Medications: Home Meds Hydrocodone/Acetaminophen [[place] 5-325 Tablet] 1 each PO Q6H PRN #20 tablet [Rx] Patient Handouts: Acetaminophen; Hydrocodone tablets or capsules, Splenic Injury, Open Splenectomy Referrals: Marco Antonio Geronimo MD [Physician] - 08/10/16 1:15 pm - Discharge Summary/Plan Comment DC Time >30 min.: No Discharge Summary/Plan Comment: Patient will be discharged today. His incision is healing per primam. He has been giving the Pneumovax for post-splenectomy prophylaxis. He is not to lift more than 25 lbs. for the next 6 weeks. Clinic appointment 08/10. Rx for [place] 5/325 po q4h given. - General Info Date of Service: 08/06/16 Admission Dx/Problem (Free Text: Acute abdomen. Ruptured spleen. Subjective Update: Patient has had a slow but progressive improvement. He is tolerating oral diet , has had a BM and continues to expel flatus. Incision is healing without erythema or drainage. Pain is controlled with po analgesics. Functional Status: Reports: pain controlled, tolerating diet, ambulating, urinating. Denies: new symptoms - Review of Systems General: Denies: Fever, Weakness, Fatigue, Malaise, Chills HEENT: Reports: no symptoms Pulmonary: Denies: shortness of breath, pleuritic chest pain, cough Cardiovascular: Denies: Chest Pain, Palpitations, Dyspnea on Exertion Gastrointestinal: Reports: Flatus. Denies: Abdominal pain, Constipation, Decreased appetite, Diarrhea, Difficulty swallowing, Hematochezia, Melena, Nausea, Vomiting Genitourinary: Denies: dysuria, frequency, burning, pain, urgency Musculoskeletal: Reports: no symptoms Skin: Denies: cyanosis, jaundice, pallor, diaphoresis, dryness, bruising, pruritis Neurological: Reports: No Symptoms Psychiatric: Reports: no symptoms - Patient Data Vitals - Most Recent: Last Vital Signs Temp 97.6 F 08/06/16 04:00 Pulse 85 08/06/16 04:00 Resp 20 08/06/16 04:00 BP 190/86 H 08/06/16 04:00 Pulse Ox 95 08/06/16 04:00 Weight - Most Recent: 220 lb I&O - Last 24 hours: Intake & Output 08/05/16 08/06/16 08/06/16 19:59 03:59 11:59 Intake Total 2072 400 Output Total 1000 Balance 1072 400 Med Orders - Current: Current Medications Hydrocodone Bitart/Acetaminophen ([place] 325-5 Mg) 1 - 2 tab PO Q4H PRN PRN Reason: Pain (moderate 4-6) Last Admin: 08/06/16 04:31 Dose: 2 tab Benzocaine/Menthol (Cepacol Sore Throat) 1 lozenge MUCMEM ASDIRECTED PRN PRN Reason: Sore Throat Last Admin: 08/02/16 18:57 Dose: 1 lozenge Fentanyl (Sublimaze) 50 mcg IVPUSH SEECOMMENT PRN PRN Reason: Pain (moderate 4-6) Metoclopramide HCl (Reglan) 10 mg PO QIDACANDBED ERIC Last Admin: 08/06/16 06:32 Dose: 10 mg Morphine Sulfate (Morphine) 1 - 5 mg IVPUSH Q30M PRN PRN Reason: Pain (severe 7-10) Ondansetron HCl (Zofran) 4 mg IVPUSH Q6H PRN PRN Reason: Nausea/Vomiting Last Admin: 08/01/16 12:55 Dose: 4 mg Ondansetron HCl (Zofran) 4 mg IVPUSH Q6H PRN PRN Reason: Nausea/Vomiting Sodium Chloride (Saline Flush) 10 ml FLUSH ASDIRECTED PRN PRN Reason: Keep Vein Open Sodium Chloride (Saline Flush) 2.5 ml FLUSH ASDIRECTED PRN PRN Reason: Keep Vein Open Discontinued Medications Bisacodyl (Dulcolax) 10 mg RECTAL ONETIME ONE Stop: 08/05/16 07:52 Last Admin: 08/05/16 10:27 Dose: 10 mg Bupivacaine HCl (Sensorcaine-Mpf 0.5%) Confirm Administered Dose 110 ml .ROUTE .STK-MED ONE Stop: 07/31/16 10:55 Cefazolin Sodium (Ancef) Confirm Administered Dose 2 gm .ROUTE .STK-MED ONE Stop: 07/31/16 10:42 Ephedrine Sulfate (Ephedrine Sulfate) Confirm Administered Dose 50 mg .ROUTE .STK-MED ONE Stop: 07/31/16 11:27 Etomidate (Amidate) Confirm Administered Dose 40 mg IVPUSH .STK-MED ONE Stop: 07/31/16 10:06 Fentanyl (Sublimaze) Confirm Administered Dose 250 mcg .ROUTE .STK-MED ONE Stop: 07/31/16 10:07 Fentanyl (Sublimaze) 50 mcg IVPUSH SEECOMMENT PRN PRN Reason: Pain (moderate 4-6) Last Admin: 07/31/16 12:35 Dose: 50 mcg Furosemide (Lasix) Confirm Administered Dose 40 mg .ROUTE .STK-MED ONE Stop: 07/31/16 11:19 Glycopyrrolate () Confirm Administered Dose 1 mg .ROUTE .STK-MED ONE Stop: 07/31/16 11:27 Hydromorphone HCl (Dilaudid) Confirm Administered Dose 2 mg .ROUTE .STK-MED ONE Stop: 07/31/16 11:14 Sodium Chloride (Normal Saline) 1,000 mls @ 999 mls/hr IV .Bolus ONE Stop: 07/31/16 10:00 Last Admin: 07/31/16 09:16 Dose: 999 mls/hr Lactated Ringer's (Ringers, Lactated) 1,000 mls @ 125 mls/hr IV ASDIRECTED ERIC Last Admin: 07/31/16 10:17 Dose: 125 mls/hr Sodium Chloride (Normal Saline) Confirm Administered Dose 20 mls @ as directed .ROUTE .STK-MED ONE Stop: 07/31/16 10:42 Sodium Chloride (Normal Saline) Confirm Administered Dose 20 mls @ as directed .ROUTE .STK-MED ONE Stop: 07/31/16 11:30 Lactated Ringer's (Ringers, Lactated) 1,000 mls @ 125 mls/hr IV ASDIRECTED ERIC Last Admin: 07/31/16 21:55 Dose: 125 mls/hr Lactated Ringer's (Ringers, Lactated) 1,000 mls @ 125 mls/hr IV ASDIRECTED ERIC Last Admin: 08/05/16 07:31 Dose: 125 mls/hr Iopamidol (Isovue-370 (76%)) 100 ml IVPUSH ONETIME STA Stop: 07/31/16 09:22 Last Admin: 07/31/16 09:21 Dose: 100 ml Metoclopramide HCl (Reglan) 10 mg IV Q6H [facility] Last Admin: 07/31/16 18:33 Dose: Not Given Metoclopramide HCl (Reglan) 10 mg IV Q6H [facility] Last Admin: 08/05/16 05:07 Dose: 10 mg Midazolam HCl (Versed 1 Mg/Ml) Confirm Administered Dose 2 mg .ROUTE .STK-MED ONE Stop: 07/31/16 10:06 Morphine Sulfate (Morphine [employer] 30 Mg In 30 Ml) 30 mg IV SEECOMMENT [facility] Morphine Sulfate (Morphine [employer]ch[employer]ise Manager 30 Mg In 30 Ml) 30 mg IV ASDIRECTED ERIC PRN Reason: Protocol Last Admin: 07/31/16 13:05 Dose: 30 mg Morphine Sulfate (Morphine [employer]ch[employer] Manager 30 Mg In 30 Ml) 30 mg IV ASDIRECTED ERIC PRN Reason: Protocol Last Admin: 08/02/16 21:42 Dose: 30 mg Neostigmine Methylsulfate (Neostigmine) Confirm Administered Dose 5 mg .ROUTE .STK-MED ONE Stop: 07/31/16 11:27 Ondansetron HCl (Zofran) 4 mg IVPUSH ONETIME ONE Stop: 07/31/16 09:04 Last Admin: 07/31/16 09:13 Dose: 4 mg Ondansetron HCl (Zofran) 4 mg IVPUSH Q6H PRN PRN Reason: Nausea/Vomiting Phenylephrine HCl (Gus-Synephrine) Confirm Administered Dose 10 mg .ROUTE .STK- MED ONE Stop: 07/31/16 11:27 Pneumococcal Polyvalent Vaccine (Pneumovax 23) 0.5 ml IM .ONCE ONE Stop: 08/04/16 12:31 Last Admin: 08/04/16 12:57 Dose: 0.5 ml Propofol (Diprivan 20 Ml) Confirm Administered Dose 200 mg .ROUTE .STK-MED ONE Stop: 07/31/16 10:15 Succinylcholine Chloride (Succinylcholine In Ns Pf) Confirm Administered Dose 200 mg .ROUTE .STK-MED ONE Stop: 07/31/16 10:06 - Exam Quality Assessment: Denies: supplemental oxygen General: Reports: alert, oriented, cooperative, no acute distress HEENT: Reports: Pupils equal, Pupils reactive, EOMI. Denies: Scleral icterus Neck: Reports: supple, trachea midline Lungs: Reports: Clear to auscultation, Normal respiratory effort Cardiovascular: Reports: Regular Rate, Regular Rhythm, No Murmurs Abdomen: Reports: bowel sounds present, soft, no tenderness, no distension (Male) Exam: Normal Inspection Rectal (Males) Exam: Deferred Back Exam: Reports: Normal Inspection, Full Range of Motion Extremities: Reports: no edema, normal pulses, no tenderness/swelling Skin: Reports: warm, dry Wound/Incisions: Reports: healing well, no drainage. Denies: erythema Neurological: Reports: no new focal deficit Psy/Mental Status: Reports: alert, normal affect, normal mood Discharge Operative/Procedures - Procedures Performed Arterial Line Indication: hemodynamic monitoring Operations/Procedure Comment: Emergent splenectomy. *Q Meaningful Use (DIS) - VTE *Q VTE Criteria *Q: - Stroke *Q Stroke Criteria *Q: - AMI *Q AMI Criteria *Q:
[2016-08-06 08:30] VITALS: BP 123/78
--- NOTE | 2016-08-07 15:14 | PCM.SN ---
- Free Text/Narrative Note: Late entry for 08/04. Patient seen on rounds. Appetite returning. Would like to try po diet. No flatus or BM. Remains afebrile. Lungs clear. Ht RRR without murmurs. Abdomen soft and nontender. Hypoactive BS. Incision clean and dry. ASSESSMENT: Patient remains hemodynamically stable and showing continued improvement. PLAN: See orders. Pneumovax today.
== END 2016-08-06 08:58 | disposition home or self-care (01) | DRG 801 ==
LOC: MW.ED 08:54 → MW.ICU 13:52 → MW.MS 08-01 10:03
PROVIDERS: ADMIT Surgery; ATTEND Surgery
PROC: 07TP0ZZ Resection of Spleen, Open Approach (ICD-10-PCS; 2016-07-31)
PROC: 03HY32Z Insertion of Monitoring Device into Upper Artery, Percutaneous Approach (ICD-10-PCS; principal; 2016-08-04)
DX: S36.00XA Unspecified injury of spleen, initial encounter (principal); W20.8XXA Other cause of strike by thrown, projected or falling object, initial encounter; Y93.89 Activity, other specified; Y92.89 Other specified places as the place of occurrence of the external cause; Y99.0 Civilian activity done for income or pay
CPT/HCPCS: 00790; 36415; 36430; 71260; 71260-26; 74177; 74177-26; 80048; 80053; 83690; 85025; 85027; 86850; 86900; 86901; 86920; 86921; 86922; 88305; 90732; 96361; 96374; 99285; 99285-25; A9270-GY; G0009; J0690; J1170; J1940; J2250; J2274; J2370; J2405; J2704; J2765; J3010; J7040; J7120; P9016; Q9967

== ENCOUNTER 2016-08-10 08:42 | Inpatient (IN) | payer OTHER ==
[2016-08-10] MEDS ORDERED: Sodium Chloride 0.9% 10 ML Syringe FLUSH PRN (09:08)
[2016-08-10] MEDS ORDERED: Sodium Chloride 0.9% 2.5 ML Syringe FLUSH PRN (09:08)
[2016-08-10] MEDS ORDERED: Ondansetron 4 MG/2 ML SDV IVPUSH ONE ×2 (09:08→09:52)
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
[2016-08-10] MEDS: Sodium Chloride 0.9% 1,000 ML IV ONE ×4 (09:13→10:35)
--- NOTE | 2016-08-10 10:53 | CT ---
CT of the abdomen and pelvis without contrast. HISTORY: Pain TECHNIQUE: Axial CT images were obtained of the abdomen and pelvis without contrast. Coronal and sag ittal reconstructions obtained. FINDINGS: The lung bases are clear, no pleural effusion. There is atelectasis within the lung bases. The liver, adrenal glands, and pancreas appear unremarkable for noncontrast examination. The patient is status post splenectomy. The gallbladder appears normal. There is no bulky retroperitoneal lymp hadenopathy. No abdominal ascites. Laparotomy changes are noted along the ventral abdomen. There are no calcifications noted within the kidneys or along the courses of the ureters bilaterally . Peripelvic cysts are noted. Highlighted small bowel is noted most prominent within the duodenum and proximal jejunum measuring u p to 5.3 cm. The exact transition point is not identified as a small bowel appears to taper. The col on however is mostly decompressed. There is no bulky pelvic lymphadenopathy. No free fluid. No free air. The urinary bladder appears normal. Prostate is mildly prominent. The visualized osseous structures appear normal. IMPRESSION: 1. Severely dilated proximal small bowel however a definite transition point is not identified. This could represent a severe postoperative ileus, however a mechanical bowel obstruction is not exclude d. 2. Status post splenectomy. 3. Mild atelectasis within the right lung base. 4. Bilateral peripelvic renal cyst.
[2016-08-10] MEDS ORDERED: Sodium Chloride 0.9% 1,000 ML IV SCH (11:30)
[2016-08-10] MEDS ORDERED: Ondansetron 4 MG/2 ML SDV IVPUSH PRN (11:41)
[2016-08-10] MEDS ORDERED: Morphine 10 MG/ML Syringe IVPUSH PRN (11:41)
[2016-08-10] MEDS ORDERED: Lactated Ringers 1,000 ML IV SCH (11:45)
--- NOTE | 2016-08-10 12:28 | PCM.HP ---
H&P History of Present Illness - General Date of Service: 08/10/16 Admit Problem/Dx: Admission Diagnosis/Problem Admission Diagnosis/Problem Postoperative complication Abdominal pain, nausea and vomiting. s/p splenectomy for blunt trauma Source of Information: Patient, Family History Limitations: Reports: No Limitations - History of Present Illness Onset of Symptoms: Reports: Gradual Duration of Symptoms: Reports: Day(s): (2) Location: Reports: Abdomen Quality: Reports: Pressure Severity: Severe Improves with: Reports: Rest Worsens with: Reports: Eating Context: Reports: Sick Contact Associated Symptoms: Reports: Loss of Appetite, Nausea/Vomiting. Denies: Fever/ Chills Pelvic Pain Score (Numeric/FACES): 4 - Related Data Allergies/Adverse Reactions: Allergies Allergy/AdvReac Type Severity Reaction Status Date / Time No Known Allergies Allergy Verified 08/10/16 09:05 Home Medications: Home Meds Hydrocodone/Acetaminophen [[place] 5-325 Tablet] 1 each PO Q6H PRN #20 tablet [Rx] Metoclopramide [Reglan] 10 mg PO QIDACANDBED 08/10/16 [History] Ondansetron [Zofran ODT] 4 mg PO Q6H 08/10/16 [History] Past Medical History Other Respiratory History: recurrent pneumonia as a child, nothing since adolecence - Past Surgical History Musculoskeletal Surgical History: Reports: Carpal Tunnel, Other (See Below) Other Musculoskeletal Surgeries/Procedures:: toe surgery Social & Family History - Family History Family Medical History: Noncontributory - Tobacco Use Smoking Status *Q: Never Smoker - Caffeine Use Caffeine Use: Reports: Soda Other Caffeine Use: several sodas throughout the day. - Recreational Drug Use Recreational Drug Use: No H&P Review of Systems - Review of Systems: Review Of Systems: See Below General: Reports: Malaise, Weakness, Fatigue, Decreased Appetite. Denies: Fever , Chills HEENT: Reports: No Symptoms Pulmonary: Denies: Shortness of Breath, Wheezing Cardiovascular: Denies: Chest Pain, Palpitations Gastrointestinal: Reports: Abdominal Pain, Anorexia, Decreased Appetite, Distension, Nausea, Vomiting. Denies: Black Stool, Bloody Stool, Constipation, Diarrhea, Flatus, Hematochezia, Melena Genitourinary: Denies: Dysuria, Frequency, Burning, Pain, Urgency, Incontinence Musculoskeletal: Reports: No Symptoms Skin: Denies: Cyanosis, Jaundice Psychiatric: Reports: Anxiety. Denies: Confusion, Depression, Mood Lability, Agitation Neurological: Reports: No Symptoms Hematologic/Lymphatic: Reports: No Symptoms Exam - Exam Exam: See Below - Vital Signs Vital Signs: Last Vital Signs Temp 98.1 F 08/10/16 12:00 Pulse 139 H 08/10/16 12:00 Resp 20 08/10/16 12:00 BP 128/84 08/10/16 12:00 Pulse Ox 96 08/10/16 12:09 Weight: 215 lb 9.793 oz - Exam Quality Assessment: Supplemental Oxygen General: Alert, Oriented, Cooperative, Moderate Distress HEENT: Conjunctiva Clear, EACs Clear, EOMI, Pupils Equal, Pupils Reactive. No: Scleral Icterus Neck: Supple, Trachea Midline Lungs: Clear to Auscultation, Normal Respiratory Effort Cardiovascular: Regular Rate, Regular Rhythm, Normal S1, Normal S2, Tachycardia Abdomen: Distention, Tenderness, Hypoactive Bowel Sounds. No: Guarding, Rigidity, Rebound (Male) Exam: No Hernia, Normal Inspection Rectal (Males) Exam: Deferred Back Exam: Normal Inspection Extremities: Normal Inspection, Normal Pulses Skin: Warm, Dry, Intact Neurological: Cranial Nerves Intact Neuro Extensive - Mental Status: Alert, Oriented x3 Psychiatric: Alert, Normal Affect, Normal Mood - Patient Data Result Diagrams: 08/10/16 09:15 08/10/16 11:00 *Q Meaningful Use (ADM) - VTE *Q VTE Criteria *Q: - Stroke *Q Stroke Criteria *Q: - AMI *Q AMI Criteria *Q: - Problem List (1) Dehydration SNOMED Code(s): 24311652 ICD Code: E86.0 - DEHYDRATION Status: Acute Priority: High Current Visit: Yes (2) Postoperative ileus SNOMED Code(s): 408911314 ICD Code: K91.89 - OTH POSTPROCEDURAL COMPLICATIONS AND DISORDERS OF DGSTV SYS; K56.7 - ILEUS, UNSPECIFIED Status: Acute Priority: High Current Visit : Yes (3) Vomiting SNOMED Code(s): 328737757 ICD Code: R11.10 - VOMITING, UNSPECIFIED Status: Acute Priority: Medium Current Visit: Yes Problem List Initiated/Reviewed/Updated: Yes Orders Last 24hrs: Active Orders 24 hr Category Date Time Status Antiembolic Devices [RC] PER UNIT ROUTINE Care 08/10/16 11:42 Active Wells Catheter Insertion [Insert Urinary Catheter] [OM. Care 08/10/16 11:45 Ordered PC] Q24H Intake and Output [RC] QSHIFT Care 08/10/16 11:40 Active Oxygen Therapy [RC] PRN Care 08/10/16 11:40 Active Pulse Oximetry [RC] INTERMITTENT Care 08/10/16 11:40 Active Up ad Carmina [RC] PER UNIT ROUTINE Care 08/10/16 11:40 Active Urinary Catheter Assessment [RC] ASDIRECTED Care 08/10/16 11:41 Active Urinary Catheter Assessment [RC] ASDIRECTED Care 08/10/16 11:42 Active Vital Signs [RC] PER UNIT ROUTINE Care 08/10/16 11:40 Active NPO [Nothing Per Oral Diet] [DIET] Diet 08/10/16 Dinner Active Nothing Per Oral Diet [DIET] Diet 08/10/16 Breakfast Active BMP [BASIC METABOLIC PANEL,BMP] [CHEM] Routine Lab 08/10/16 16:00 Ordered Lactated Ringers [Ringers, Lactated] 1,000 ml Med 08/10/16 11:45 Active IV ASDIRECTED Metoclopramide [Reglan] Med 08/10/16 11:45 Active 10 mg IV Q6H Morphine Med 08/10/16 11:41 Active 1 - 5 mg IVPUSH Q30M PRN Ondansetron [Zofran] Med 08/10/16 11:41 Active 4 mg IVPUSH Q6H PRN Sodium Chloride 0.9% [Normal Saline] 1,000 ml Med 08/10/16 11:30 Active IV ASDIRECTED Antiembolic Hose [OM.PC] PER UNIT ROUTINE Oth 08/10/16 06:00 Ordered Antiembolic Hose [OM.PC] PER UNIT ROUTINE Oth 08/11/16 06:00 Ordered Nasogastric Orogastric Tube Insertion [OM.PC] .IN OR Oth 08/10/16 11:45 Ordered Sequential Compression Device [OM.PC] Routine Oth 08/10/16 11:40 Ordered Medication Orders Sodium Chloride (Normal Saline) 1,000 mls @ 150 mls/hr IV ASDIRECTED ERIC Lactated Ringer's (Ringers, Lactated) 1,000 mls @ 500 mls/hr IV ASDIRECTED ERIC Metoclopramide HCl (Reglan) 10 mg IV Q6H ERIC Morphine Sulfate (Morphine) 1 - 5 mg IVPUSH Q30M PRN PRN Reason: Pain (severe 7-10) Ondansetron HCl (Zofran) 4 mg IVPUSH Q6H PRN PRN Reason: Nausea/Vomiting Sodium Chloride (Saline Flush) 10 ml FLUSH ASDIRECTED PRN PRN Reason: Keep Vein Open Last Admin: 08/10/16 09:13 Dose: 10 ml Sodium Chloride (Saline Flush) 2.5 ml FLUSH ASDIRECTED PRN PRN Reason: Keep Vein Open Last Admin: 08/10/16 09:13 Dose: 2.5 ml Assessment/Plan Comment:: Aggressive volume resuscitation today. Close I/O monitoring. NPO except for ice chips. Repeat labs this pm and again in morning. Metoclopramide, Zofran, Cepacol.
[2016-08-10] MEDS: Metoclopramide 10 MG/2 ML SDV IV SCH ×2 (12:46→18:07)
[2016-08-10] MEDS: Enoxaparin 40 MG/0.4 ML Syringe SUBCUT SCH (15:03)
--- NOTE | 2016-08-10 15:21 | CR ---
EXAMINATION: Abdomen HISTORY: NG tube placement COMPARISON: CT from the same day TECHNIQUE: AP and upright views FINDINGS: There is an NG tube noted with tip likely within the duodenum. Mild bibasilar atelectasis. Dilated loops of small bowel are noted measuring up to 6 cm. No free air under the diaphragm. No or ganomegaly. Degenerative changes are noted within the spine, otherwise the osseous structures appear normal. IMPRESSION: 1. NG tube noted with tip likely within the duodenum. 2. Persistent dilated loops of small bowel.
[2016-08-10] MEDS ORDERED: Temazepam 15 MG Cap PO PRN (17:38)
[2016-08-10] MEDS: Lactated Ringers 1,000 ML IV SCH (18:07)
[2016-08-10] MEDS: Benzocaine/Cetylpyridinium/Menthol Lozenge MUCMEM PRN (18:07)
[2016-08-11] MEDS: Lactated Ringers 1,000 ML IV SCH ×4 (00:01→19:03)
[2016-08-11] MEDS: Metoclopramide 10 MG/2 ML SDV IV SCH ×5 (00:30→23:37)
[2016-08-11] MEDS: Benzocaine/Cetylpyridinium/Menthol Lozenge MUCMEM PRN ×3 (10:49→20:00)
--- NOTE | 2016-08-11 13:59 | PCM.PN ---
- General Info Date of Service: 08/11/16 Admission Dx/Problem (Free Text): Admission Diagnosis/Problem Admission Diagnosis/Problem Postoperative complication Abdominal pain, nausea and vomiting. s/p splenectomy for blunt trauma Ileus. Functional Status: Reports: pain controlled, ambulating, urinating - Review of Systems General: Reports: Appetite (patient is getting hungry today.). Denies: Fever, Weakness, Fatigue, Malaise HEENT: Reports: no symptoms Pulmonary: Denies: shortness of breath Cardiovascular: Denies: Chest Pain Gastrointestinal: Reports: Diarrhea, Flatus. Denies: Abdominal pain, Constipation, Nausea, Vomiting Genitourinary: Denies: dysuria, frequency, burning, pain, urgency Musculoskeletal: Reports: no symptoms Skin: Denies: cyanosis, jaundice, mottled, pallor, diaphoresis Neurological: Denies: Confusion, Dizziness Psychiatric: Denies: anxiety - Patient Data Vitals - most recent: Last Vital Signs Temp 97.4 F 08/11/16 11:33 Pulse 100 08/11/16 11:33 Resp 22 H 08/11/16 11:33 BP 136/83 08/11/16 11:33 Pulse Ox 95 08/11/16 13:00 Weight - most recent: 215 lb 9.793 oz I&O - last 24 hours: Intake & Output 08/11/16 08/11/16 08/11/16 03:59 11:59 19:59 Intake Total 1000 1500 Output Total 1310 Balance 1000 190 Lab Results last 24 hrs: Laboratory Results - last 24 hr 08/10/16 08/11/16 08/11/16 Range/Units 15:54 05:00 05:00 WBC 14.03 H (4.0-11.0) K/uL RBC 4.19 L (4.50-5.90) M/uL Hgb 12.3 L (13.0-17.0) g/dL Hct 38.2 (38.0-50.0) % MCV 91.2 (80.0-98.0) fL MCH 29.4 (27.0-32.0) pg MCHC 32.2 (31.0-37.0) g/dL RDW Std Deviation 46.2 (28.0-62.0) fl RDW Coeff of Gustavo 14 (11.0-15.0) % Plt Count 703 H (150-400) K/uL MPV 9.00 (7.40-12.00) fL Neut % (Auto) 80.1 H (48.0-80.0) % Lymph % (Auto) 7.1 L (16.0-40.0) % [place] % (Auto) 11.4 (0.0-15.0) % Eos % (Auto) 1.3 (0.0-7.0) % Baso % (Auto) 0.1 (0.0-1.5) % Neut # (Auto) 11.2 H (1.4-5.7) K/uL Lymph # (Auto) 1.0 (0.6-2.4) K/uL [place] # (Auto) 1.6 H (0.0-0.8) K/uL Eos # (Auto) 0.2 (0.0-0.7) K/uL Baso # (Auto) 0.0 (0.0-0.1) K/uL Nucleated RBC % 0.0 /100WBC Nucleated RBCs # 0 K/uL Sodium 142 142 (136-146) mmol/L Potassium 5.2 H 5.0 (3.5-5.1) mmol/L Chloride 105 106 (98-110) mmol/L Carbon Dioxide 27 25 (21-31) mmol/L BUN 32 H 35 H (6.0-23.0) mg/dL Creatinine 2.6 H 2.1 H (0.6-1.5) mg/dL Est Cr Clr Drug Dosing 36.61 45.33 mL/min Estimated GFR (MDRD) 25.2 32.3 ml/min Glucose 121 H 118 H (60-110) mg/dL Calcium 9.0 8.5 L (8.8-10.8) mg/dL Med Orders - Current: Current Medications Benzocaine/Menthol (Cepacol Sore Throat) 1 lozenge MUCMEM ASDIRECTED PRN PRN Reason: Sore Throat Last Admin: 08/11/16 10:49 Dose: 1 lozenge Enoxaparin Sodium (Lovenox) 40 mg SUBCUT Q24H ERIC Last Admin: 08/10/16 15:03 Dose: 40 mg Lactated Ringer's (Ringers, Lactated) 1,000 mls @ 175 mls/hr IV ASDIRECTED [facility] Last Admin: 08/11/16 12:47 Dose: 175 mls/hr Metoclopramide HCl (Reglan) 10 mg IV Q6H [facility] Last Admin: 08/11/16 10:47 Dose: 10 mg Morphine Sulfate (Morphine) 1 - 5 mg IVPUSH Q30M PRN PRN Reason: Pain (severe 7-10) Ondansetron HCl (Zofran) 4 mg IVPUSH Q6H PRN PRN Reason: Nausea/Vomiting Sodium Chloride (Saline Flush) 10 ml FLUSH ASDIRECTED PRN PRN Reason: Keep Vein Open Last Admin: 08/10/16 09:13 Dose: 10 ml Sodium Chloride (Saline Flush) 2.5 ml FLUSH ASDIRECTED PRN PRN Reason: Keep Vein Open Last Admin: 08/10/16 09:13 Dose: 2.5 ml Temazepam (Restoril) 15 mg PO BEDTIME PRN PRN Reason: Insomnia Last Admin: 08/10/16 20:46 Dose: 15 mg Discontinued Medications Sodium Chloride (Normal Saline) 1,000 mls @ 999 mls/hr IV STAT ONE Stop: 08/10/16 10:08 Last Admin: 08/10/16 09:56 Dose: 999 mls/hr Sodium Chloride (Normal Saline) 1,000 mls @ 999 mls/hr IV STAT ONE Stop: 08/10/16 10:52 Last Admin: 08/10/16 10:35 Dose: 999 mls/hr Sodium Chloride (Normal Saline) 1,000 mls @ 150 mls/hr IV ASDIRECTED [facility] Last Admin: 08/10/16 12:54 Dose: 150 mls/hr Lactated Ringer's (Ringers, Lactated) 1,000 mls @ 500 mls/hr IV ASDIRECTED [facility] Last Admin: 08/10/16 12:46 Dose: 500 mls/hr Ondansetron HCl (Zofran) 4 mg IVPUSH ONETIME ONE Stop: 08/10/16 09:09 Last Admin: 08/10/16 09:13 Dose: 4 mg Ondansetron HCl (Zofran) 4 mg IVPUSH ONETIME ONE Stop: 08/10/16 09:53 Last Admin: 08/10/16 09:58 Dose: 4 mg - Exam General: alert, oriented, cooperative, no acute distress HEENT: Pupils equal, Pupils reactive. No: Scleral icterus Neck: supple Lungs: Clear to auscultation, Normal respiratory effort Cardiovascular: Regular Rate, Regular Rhythm, Tachycardia Abdomen: bowel sounds present (Hypactive), soft, no tenderness, no distension. No: rigidity, rebound, guarding, tenderness, distension (Male) Exam: No Hernia Back Exam: Normal Inspection Extremities: no edema, normal pulses Skin: warm, dry, intact Wound/Incisions: healing well Neurological: no new focal deficit Psy/Mental Status: alert, normal affect, normal mood - Problem List & Annotations (1) Dehydration SNOMED Code(s): 25319825 Code(s): E86.0 - DEHYDRATION Status: Acute Priority: High Current Visit : Yes (2) Postoperative ileus SNOMED Code(s): 803811312 Code(s): K91.89 - OTH POSTPROCEDURAL COMPLICATIONS AND DISORDERS OF DGSTV SYS ; K56.7 - ILEUS, UNSPECIFIED Status: Acute Priority: High Current Visit: Yes (3) Vomiting SNOMED Code(s): 144657662 Code(s): R11.10 - VOMITING, UNSPECIFIED Status: Acute Priority: Medium Current Visit: Yes - Problem List Review Problem List Initiated/Reviewed/Updated: Yes - My Orders Last 24 Hours: My Active Orders 08/10/16 14:13 Antiembolic Devices [RC] .Routine 08/10/16 14:15 Enoxaparin [Lovenox] 40 mg SUBCUT Q24H 08/10/16 17:37 Benzocaine/Cetylpyrd/Menthol [Cepacol Sore Throat] 1 lozenge MUCMEM ASDIRECTED PRN 08/10/16 17:38 Temazepam [Restoril] 15 mg PO BEDTIME PRN 08/10/16 18:00 Lactated Ringers [Ringers, Lactated] 1,000 ml IV ASDIRECTED 08/10/16 Dinner NPO [Nothing Per Oral Diet] [DIET] 08/11/16 06:00 Antiembolic Hose [OM.PC] PER UNIT ROUTINE 08/11/16 08:00 Abdomen 2V AP Flat Upright [CR] Timed 08/11/16 13:20 Urinary Catheter Removal [RC] Per Unit Routine 08/12/16 05:11 BASIC METABOLIC PANEL,BMP [CHEM] AM CBC WITH AUTO DIFF [HEME] AM 08/12/16 07:00 Abdomen 2V AP Flat Upright [CR] Routine - Assessment Assessment:: Patient is doing much better. Renal function is improving. He has been passing gas and having diarrheal stools. NG is in good position in the distal stomach. Air fluid levels persist but are improved from yesterday. Some air in large intestine. - Plan Plan:: D/C [place]. Leave NG today and ice chips only. Recheck flat/upright in am and possibly remove NG. Labs ordered for am.
[2016-08-11] MEDS: Enoxaparin 40 MG/0.4 ML Syringe SUBCUT SCH (14:10)
--- NOTE | 2016-08-11 15:54 | CR ---
EXAM DATE: 08/10/16 PATIENT'S AGE: 60 Patient: EDU MIRANDA Facility: [facility], [place] Site . Site : [id number] Study: XRay Abdomen [id number]/[id number] 8:56:48 AM Ordering Physician: Juanpablo Bernard Final Report: INDICATION: Ileus COMPARISON: Two view abdomen dated 08/10/2016 TECHNIQUE: Two view abdomen. FINDINGS: As compared to the exam performed 1 day prior the NG tube has been pulled back and now lies within the distal gastric body and antrum. There are persistent air fluid levels within mildly dilated small bowel. There is minimal air within the colon. There is no evidence of free intraperitoneal air. There is small amount of pleural fluid blunting the right costophrenic angle. IMPRESSION: Proper NG tube position. Continued air-fluid levels which may indicate a mild ileus. Dictated by Chava Mcclendon MD @ Aug 11 2016 9:04AM (Electronic Signature) Report Signed by Proxy. ROSY
[2016-08-12] MEDS: Lactated Ringers 1,000 ML IV SCH ×3 (01:00→16:49)
[2016-08-12] MEDS: Benzocaine/Cetylpyridinium/Menthol Lozenge MUCMEM PRN ×2 (04:15)
[2016-08-12] MEDS: Metoclopramide 10 MG/2 ML SDV IV SCH ×4 (06:18→23:51)
--- NOTE | 2016-08-12 08:35 | PCM.PN ---
- General Info Date of Service: 08/12/16 Admission Dx/Problem (Free Text): Admission Diagnosis/Problem Admission Diagnosis/Problem Postoperative complication Abdominal pain, nausea and vomiting. s/p splenectomy for blunt trauma Ileus. Functional Status: Reports: pain controlled, ambulating, urinating - Review of Systems General: Reports: Appetite (hungry and wants to eat). Denies: Fever, Weakness, Fatigue, Malaise HEENT: Reports: no symptoms Pulmonary: Denies: shortness of breath, pleuritic chest pain, cough Cardiovascular: Denies: Chest Pain Gastrointestinal: Reports: Flatus. Denies: Abdominal pain, Decreased appetite, Diarrhea, Hematochezia, Melena, Nausea, Vomiting Genitourinary: Reports: frequency, urgency. Denies: dysuria, burning, pain, incontinence, hematuria Musculoskeletal: Denies: no symptoms Skin: Denies: cyanosis, jaundice, pallor Neurological: Reports: No Symptoms Psychiatric: Reports: no symptoms - Patient Data Vitals - most recent: Last Vital Signs Temp 97.5 F 08/12/16 07:56 Pulse 80 08/12/16 07:56 Resp 16 08/12/16 07:56 BP 152/78 H 08/12/16 07:56 Pulse Ox 93 L 08/12/16 07:56 Weight - most recent: 215 lb 9.793 oz I&O - last 24 hours: Intake & Output 08/11/16 08/12/16 08/12/16 19:59 03:59 11:59 Intake Total 180 1000 1200 Output Total 450 100 Balance -270 1000 1100 Lab Results last 24 hrs: Laboratory Results - last 24 hr 08/12/16 08/12/16 Range/Units 05:46 05:46 WBC 11.62 H (4.0-11.0) K/uL RBC 3.97 L (4.50-5.90) M/uL Hgb 11.5 L (13.0-17.0) g/dL Hct 36.1 L (38.0-50.0) % MCV 90.9 (80.0-98.0) fL MCH 29.0 (27.0-32.0) pg MCHC 31.9 (31.0-37.0) g/dL RDW Std Deviation 45.2 (28.0-62.0) fl RDW Coeff of Gustavo 14 (11.0-15.0) % Plt Count 725 H (150-400) K/uL MPV 9.00 (7.40-12.00) fL Neut % (Auto) 77.9 (48.0-80.0) % Lymph % (Auto) 12.4 L (16.0-40.0) % [place] % (Auto) 8.0 (0.0-15.0) % Eos % (Auto) 1.5 (0.0-7.0) % Baso % (Auto) 0.2 (0.0-1.5) % Neut # (Auto) 9.1 H (1.4-5.7) K/uL Lymph # (Auto) 1.4 (0.6-2.4) K/uL [place] # (Auto) 0.9 H (0.0-0.8) K/uL Eos # (Auto) 0.2 (0.0-0.7) K/uL Baso # (Auto) 0.0 (0.0-0.1) K/uL Nucleated RBC % 0.0 /100WBC Nucleated RBCs # 0 K/uL Sodium 142 (136-146) mmol/L Potassium 4.1 (3.5-5.1) mmol/L Chloride 108 (98-110) mmol/L Carbon Dioxide 25 (21-31) mmol/L BUN 24 H (6.0-23.0) mg/dL Creatinine 1.4 (0.6-1.5) mg/dL Est Cr Clr Drug Dosing 68.00 mL/min Estimated GFR (MDRD) 51.5 ml/min Glucose 103 (60-110) mg/dL Calcium 8.6 L (8.8-10.8) mg/dL Med Orders - Current: Current Medications Benzocaine/Menthol (Cepacol Sore Throat) 1 lozenge MUCMEM ASDIRECTED PRN PRN Reason: Sore Throat Last Admin: 08/12/16 04:15 Dose: 1 lozenge Enoxaparin Sodium (Lovenox) 40 mg SUBCUT Q24H ERIC Last Admin: 08/11/16 14:10 Dose: 40 mg Lactated Ringer's (Ringers, Lactated) 1,000 mls @ 125 mls/hr IV ASDIRECTED ERIC Last Admin: 08/12/16 06:44 Dose: 175 mls/hr Metoclopramide HCl (Reglan) 10 mg IV Q6H ON LICENSE OF [facility] Last Admin: 08/12/16 06:18 Dose: 10 mg Morphine Sulfate (Morphine) 1 - 5 mg IVPUSH Q30M PRN PRN Reason: Pain (severe 7-10) Ondansetron HCl (Zofran) 4 mg IVPUSH Q6H PRN PRN Reason: Nausea/Vomiting Sodium Chloride (Saline Flush) 10 ml FLUSH ASDIRECTED PRN PRN Reason: Keep Vein Open Last Admin: 08/10/16 09:13 Dose: 10 ml Sodium Chloride (Saline Flush) 2.5 ml FLUSH ASDIRECTED PRN PRN Reason: Keep Vein Open Last Admin: 08/10/16 09:13 Dose: 2.5 ml Temazepam (Restoril) 15 mg PO BEDTIME PRN PRN Reason: Insomnia Last Admin: 08/10/16 20:46 Dose: 15 mg Discontinued Medications Sodium Chloride (Normal Saline) 1,000 mls @ 999 mls/hr IV STAT ONE Stop: 08/10/16 10:08 Last Admin: 08/10/16 09:56 Dose: 999 mls/hr Sodium Chloride (Normal Saline) 1,000 mls @ 999 mls/hr IV STAT ONE Stop: 08/10/16 10:52 Last Admin: 08/10/16 10:35 Dose: 999 mls/hr Sodium Chloride (Normal Saline) 1,000 mls @ 150 mls/hr IV ASDIRECTED ON LICENSE OF [facility] Last Admin: 08/10/16 12:54 Dose: 150 mls/hr Lactated Ringer's (Ringers, Lactated) 1,000 mls @ 500 mls/hr IV ASDIRECTED ON LICENSE OF [facility] Last Admin: 08/10/16 12:46 Dose: 500 mls/hr Ondansetron HCl (Zofran) 4 mg IVPUSH ONETIME ONE Stop: 08/10/16 09:09 Last Admin: 08/10/16 09:13 Dose: 4 mg Ondansetron HCl (Zofran) 4 mg IVPUSH ONETIME ONE Stop: 08/10/16 09:53 Last Admin: 08/10/16 09:58 Dose: 4 mg - Exam General: alert, oriented, cooperative, no acute distress HEENT: Pupils equal, Pupils reactive, EOMI. No: Scleral icterus Neck: supple Lungs: Clear to auscultation, Normal respiratory effort Cardiovascular: Regular Rate, Regular Rhythm, No Murmurs Abdomen: bowel sounds present, soft, no tenderness, no distension. No: rigidity , rebound, guarding (Male) Exam: Normal Inspection Back Exam: Normal Inspection Extremities: no edema, normal pulses Skin: warm, dry, intact Wound/Incisions: healing well Neurological: no new focal deficit Psy/Mental Status: alert, normal affect, normal mood - Problem List & Annotations (1) Dehydration SNOMED Code(s): 03123258 Code(s): E86.0 - DEHYDRATION Status: Acute Priority: High Current Visit : Yes (2) Postoperative ileus SNOMED Code(s): 050307686 Code(s): K91.89 - OTH POSTPROCEDURAL COMPLICATIONS AND DISORDERS OF DGSTV SYS ; K56.7 - ILEUS, UNSPECIFIED Status: Acute Priority: High Current Visit: Yes (3) Vomiting SNOMED Code(s): 181192445 Code(s): R11.10 - VOMITING, UNSPECIFIED Status: Acute Priority: Medium Current Visit: Yes - Problem List Review Problem List Initiated/Reviewed/Updated: Yes - My Orders Last 24 Hours: My Active Orders 08/11/16 13:20 Urinary Catheter Removal [RC] Per Unit Routine 08/12/16 07:00 Abdomen 2V AP Flat Upright [CR] Routine 08/12/16 08:29 NG [Nasogastric Orogastric Tube Removal] [OM.PC] Routine 08/12/16 08:30 May Shower [RC] ASDIRECTED 08/12/16 Lunch Clear Liquid Diet [DIET] - Assessment Assessment:: Patient is doing much better. Renal function is m;uch improved. Passing a small amount of gas. States he never passes much gas. NG is in good position in the distal stomach. Still has a few air fluid levels. Some air in large intestine. - Plan Plan:: Will remove NG tube and start clear liquids. Will slow IV to 125 ml/hr.
[2016-08-12] MEDS: Enoxaparin 40 MG/0.4 ML Syringe SUBCUT SCH (14:23)
[2016-08-13] MEDS: Lactated Ringers 1,000 ML IV SCH ×2 (00:48→08:50)
[2016-08-13] MEDS: Metoclopramide 10 MG/2 ML SDV IV SCH ×4 (05:40→23:19)
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
[2016-08-13] MEDS: Enoxaparin 40 MG/0.4 ML Syringe SUBCUT SCH (14:54)
[2016-08-14] MEDS: Metoclopramide 10 MG/2 ML SDV IV SCH (05:23)
[2016-08-14 09:03] VITALS: BP 145/85
--- NOTE | 2016-08-14 10:22 | CR ---
EXAM DATE: 08/10/16 PATIENT'S AGE: 60 Patient: EDU MIRANDA Facility: [place], [place] Site . Site : 1955 Study: XRay Abdomen/Pelvis [id number]/24/2017 7:43:05 AM Ordering Physician: Juanpablo Bernard Final Report: Indication: Ileus. Technique: Flat and upright, 4 images. Comparison: 08/11/2016. Findings: NG tube in the distal stomach, as before. Dilated small bowel loops containing air-fluid levels, as before with little change. Little colon gas. No free air. Moderate right diaphragmatic elevation. Impression: 1. No significant change. 2. NG tube in distal stomach. 3. Dilated small bowel loops containing air-fluid levels and paucity of colon gas. Small bowel ileus versus small bowel obstruction. 4. Moderate right diaphragmatic elevation. Dictated by Fernando Quesada MD @ Aug 12 2016 7:46AM (Electronic Signature) Report Signed by Proxy. ROSY
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
== END 2016-08-14 10:30 | disposition home or self-care (01) | DRG 395 ==
LOC: MW.ED 08:42 → MW.MS 11:13
PROVIDERS: ADMIT Surgery; ATTEND Surgery
DX: K91.89 Other postprocedural complications and disorders of digestive system (principal); K91.3 Postprocedural intestinal obstruction; Y83.9 Surgical procedure, unspecified as the cause of abnormal reaction of the patient, or of later complication, without mention of misadventure at the time of the procedure; E86.0 Dehydration; R11.10 Vomiting, unspecified; R79.89 Other specified abnormal findings of blood chemistry; Z79.899 Other long term (current) drug therapy
CPT/HCPCS: 36415; 74020; 74020-26; 74176; 74176-26; 80048; 80053; 81001; 83605; 85025; 96361; 96374; 96376; 99285; 99285-25; A9270-GY; J1650; J2405; J2765; J7040; J7120

== ENCOUNTER 2017-03-02 11:40 | Day surgery (SDC) | payer BC, OTHER ==
[~2017-03-02 11:40] MED LIST: Lactated Ringers 1,000 ML IV SCH; Lidocaine 2% 5 ML SDV ONE; Propofol 200 MG/20 ML SDV ONE
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
--- NOTE | 2017-03-02 13:50 | PCM.OPNOTE ---
- General Post-Op/Procedure Note Date of Surgery/Procedure: 03/02/17 Operative Procedure(s): Colonoscopy Pre Op Diagnosis: Change in bowel habits. Family history of colon cancer. Post-Op Diagnosis: No evidence of neoplasia Anesthesia Technique: MAC (ASA II) Primary Surgeon: Marco Antonio Geronimo Condition: Good Free Text/Narrative:: Dictation [id number] CPT CODE [id number]
[2017-03-02] MEDS ORDERED: Lactated Ringers 1,000 ML IV SCH (14:00)
[2017-03-02 14:16] VITALS: BP 128/77
--- NOTE | 2017-03-02 14:21 | PCM.POSTAN ---
POST ANESTHESIA ASSESSMENT - MENTAL STATUS Mental Status: Alert, Oriented - RESPIRATORY Respiratory Status: Respiratory Rate WNL, Airway Patent, O2 Saturation Stable - CARDIOVASCULAR CV Status: Pulse Rate WNL, Blood Pressure Stable - GASTROINTESTINAL GI Status: No Symptoms - POST OP HYDRATION Hydration Status: Adequate & Stable
--- NOTE | 2017-03-02 14:30 | PCM48HPAN ---
Post Anesthesia Note - EVALUATION WITHIN 48HRS OF ANESTHETIC Vital Signs in Normal Range: Yes Patient Participated in Evaluation: Yes Respiratory Function Stable: Yes Airway Patent: Yes Cardiovascular Function Stable: Yes Hydration Status Stable: Yes Pain Control Satisfactory: Yes Nausea and Vomiting Control Satisfactory: Yes Mental Status Recovered: Yes
--- NOTE | 2017-03-02 18:57 | OR ---
SURGEON: Marco Antonio Geronimo M.D. DATE OF PROCEDURE: 03/02/2017 OPERATION PERFORMED: Colonoscopy. ANESTHESIA: MAC. ASA CLASSIFICATION: II. PREOPERATIVE DIAGNOSES: 1. Change in bowel habits. 2. Family history of colon cancer. POSTOPERATIVE DIAGNOSIS: No evidence of neoplasia. DESCRIPTION OF PROCEDURE: The patient was taken to the endoscopy room and positioned on the endoscopy table in the left lateral decubitus position. Time-out was called for appropriate identification of the patient and procedure. Monitored anesthesia care was provided. The colonoscope was inserted into the rectum and advanced with minimal difficulty to the cecum. Cecum was identified by internal landmarks and external pressure. The colonoscope was retroflexed in the cecum to visualize the ascending colon from below then straightened and slowly withdrawn. The cecum, ascending colon, hepatic flexure, transverse colon, splenic flexure, descending colon, sigmoid colon, and rectum were very well visualized. No tumors, polyps, diverticula, or angiodysplastic changes were noted anywhere throughout the lower gastrointestinal tract. Once the colonoscope was withdrawn to the rectum, it was retroflexed to visualize the anal orifice from above. No tumors, polyps, or acute hemorrhoidal changes were noted. The colonoscope was then straightened, the rectum aspirated, and the colonoscope removed. The patient tolerated the procedure well and was taken to recovery room in stable condition. BENITA CARBONE /[id number]
== END 2017-03-02 14:25 | disposition home or self-care (01) ==
LOC: MW.SDS 11:40
PROVIDERS: ATTEND Surgery
DX: Z12.11 Encounter for screening for malignant neoplasm of colon (principal); M19.90 Unspecified osteoarthritis, unspecified site; F32.9 Major depressive disorder, single episode, unspecified; K21.9 Gastro-esophageal reflux disease without esophagitis; R11.2 Nausea with vomiting, unspecified; E78.00 Pure hypercholesterolemia, unspecified; I10 Essential (primary) hypertension; Z79.899 Other long term (current) drug therapy; Z90.81 Acquired absence of spleen; Z80.0 Family history of malignant neoplasm of digestive organs
CPT/HCPCS: 45378; J7120; J2704

== ENCOUNTER 2020-12-05 07:57 | Emergency (ER) | payer BC ==
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
[2020-12-05] MEDS ORDERED: Ondansetron 4 MG/2 ML SDV IVPUSH ONE (08:25)
[2020-12-05] MEDS ORDERED: Sodium Chloride 0.9% 1,000 ML IV ONE ×2 (08:25→15:48)
[2020-12-05] MEDS ORDERED: Morphine 4 MG/ML Syringe IVPUSH ONE (08:25)
[2020-12-05] MEDS ORDERED: Morphine 2 MG/ML SYRINGE IVPUSH ONE (08:26)
[2020-12-05] MEDS ORDERED: HYDROmorphone 1 MG/ML Syringe IVPUSH ONE (08:48)
[2020-12-05 09:12] LABS: CARBON DIOXIDE,CO2 28.3 mmol/L (21.0-32.0); POTASSIUM,K 3.8 mmol/L (3.5-5.1)
[2020-12-05] MEDS ORDERED: Iopamidol 755 MG/ML 500 ML Multipack Bottle IVPUSH ONE (10:02)
--- NOTE | 2020-12-05 10:48 | CT ---
Indication: Diffuse pain, no bowel movements, nausea and vomiting. Rule out small bowel obstruction. Comparison: None available. Technique: CT of the abdomen and pelvis with IV contrast. 100 cc of Omnipaque 370. Findings: A small bowel obstruction is present, with severely dilated small bowel loops as well as a distended stomach with an air-fluid level. Multiple foci of gas are seen within the wall of the most dilated loops of small bowel (see image 110, series 301 which raises concern for pneumatosis, however these are not definitely seen along the dependent portions of the small intestine to confirm its presence and gas along the wall may instead be between 5 bowel folds. No definite mesenteric venous gas. No portal venous gas. The distal small intestine is decompressed. The large intestine is decompressed. No free intraperitoneal air. Small amount of fluid between the obstructed small bowel loops. Trace free fluid in the pelvis. Mildly prominent prostate gland. The urinary bladder is nondistended. Multilevel degenerative changes in the spine. A small focal area of avascular necrosis is seen within bilateral femoral heads. No collapse of the femoral heads. Linear opacity in the right lower lobe likely a segmental/subsegmental area of atelectasis, also seen within the lingula. No pleural effusion or lung bases. There are a few tiny subpleural pulmonary nodules in the lower lobes measuring up to 5 mm. The liver is non cirrhotic in morphology. Adrenal glands are unremarkable. Pancreas is normal in appearance. The spleen is absent with large splenules or splenic rest present. The splenic, mesenteric, and portal veins are patent. Hepatic veins are patent. Mild atherosclerotic change within the abdominal aorta without abdominal aortic aneurysm. The IVC and renal veins are patent. Multiple parapelvic cysts in the right and left kidney. A cortical cyst cells seen in the right kidney. Small soft tissue nodule next to the left adrenal gland may be a splenule or a small lymph node. Small lymph nodes seen in the periceliac region. Impression: 1. Small-bowel obstruction. Small amount of free fluid and equivocal for pneumatosis. Correlate with lactate and other clinical factors. Surgical consult and nasogastric tube placement recommended. 2. 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 Correlate with history. 3. Bilateral hip avascular necrosis. 4. Small subpleural pulmonary nodules in the lung bases. [employer] GUID[employer]INES - SOLID NODULES: MULTIPLE LOW RISK - nodule less than 6 mm: No routine follow-up. - nodule 6-8 mm: CT at 3-6 months, then consider CT at 18-24 months. - nodule greater than 8 mm: CT at 3-6 months, then consider CT at 18-24 months. MULTIPLE HIGH RISK - nodule less than 6 mm: Optional CT at 12 months. - nodule 6-8 mm: CT at 3-6 months, then at 18-24 months. - nodule greater than 8 mm: CT at 3-6 months, then at 18-24 months. Please note that all CT scans at this facility use dose modulation, iterative reconstruction, and/or weight-based dosing when appropriate to reduce radiation dose to as low as reasonably achievable. Dictated by Angel Vera MD @ 12/05/2020 10:48:09 AM (Electronically Signed)
[2020-12-05] MEDS ORDERED: Piperacillin/Tazobactam 3.375 GM in Sodium Chloride 0.9% 50 ML IV ONE (10:52)
[2020-12-05] MEDS ORDERED: Midazolam 1 MG/ML 2 ML SDV IVPUSH ONE ×2 (11:09→11:26)
[2020-12-05] MEDS ORDERED: Lidocaine 2% Viscous Solution 15 ML Cup PO PRN (11:27)
[2020-12-05] MEDS ORDERED: HYDROmorphone 2 MG/ML Syringe IVPUSH ONE (12:19)
--- NOTE | 2020-12-05 12:58 | CR ---
INDICATION: NG tube placement. FINDINGS: NG tube is identified. The tip is demonstrated in the distal stomach. There is elevated right hemidiaphragm. Atelectasis in the lung bases is noted. IMPRESSION: NG tube is in place the tip projected near the distal stomach. There is small lung volumes with elevated right hemidiaphragm. Atelectasis in the lung bases is noted. Dictated by Dougie Masterson MD @ 12/05/2020 12:57:47 PM (Electronically Signed)
[2020-12-05] MEDS ORDERED: Benzocaine/Cetylpyridinium/Menthol Lozenge MUCMEM STA (13:37)
[2020-12-05] MEDS ORDERED: Benzocaine/Cetylpyridinium/Menthol Lozenge MUCMEM ONE (13:55)
[2020-12-05 16:19] VITALS: PULSE 87
[2020-12-05 16:48] VITALS: BP 124/72
[2020-12-05] MEDS ORDERED: Benzocaine 20% Topical Spray UD MUCMEM ONE ×3 (17:34→17:35)
== END 2020-12-05 17:53 ==
LOC: MW.ED 07:57
DX: K56.609 Unspecified intestinal obstruction, unspecified as to partial versus complete obstruction (principal); I10 Essential (primary) hypertension; K21.9 Gastro-esophageal reflux disease without esophagitis; M19.90 Unspecified osteoarthritis, unspecified site; Z79.899 Other long term (current) drug therapy; Z20.822 Contact with and (suspected) exposure to COVID-19
CPT/HCPCS: 36415; 43752; 71045; 74177; 80053; 83605; 83690; 83735; 85025; 87635; 96365; 96366; 96375; 96376; 99285; A9270; J1170; J2250; J2405; J2543; J7030; Q9967; U0002

== ENCOUNTER 2022-08-28 18:35 | Emergency (ER) | payer MEDICARE, OTHER ==
[2022-08-28] MEDS ORDERED: Aluminum Hydroxide/Magnesium Hydroxide/Simethicone XS Susp 30 ML Cup PO ONE (20:24)
[2022-08-28] MEDS ORDERED: MAGNESIUM HYDROXIDE PO ONE ×2 (20:52)
[2022-08-28] MEDS ORDERED: SIMETHICONE PO ONE ×2 (20:52)
[2022-08-28] MEDS ORDERED: METOCLOPRAMIDE PO ONE ×2 (20:52)
[2022-08-28] MEDS ORDERED: ALUMINUM HYDROXIDE PO ONE ×2 (20:52)
[2022-08-28 21:08] VITALS: BP 149/93; PULSE 68
== END 2022-08-28 21:08 | disposition home or self-care (01) ==
LOC: MW.ED 18:35
DX: T18.128A Food in esophagus causing other injury, initial encounter (principal); E78.00 Pure hypercholesterolemia, unspecified; I10 Essential (primary) hypertension; K21.9 Gastro-esophageal reflux disease without esophagitis; Z79.899 Other long term (current) drug therapy
CPT/HCPCS: 99283; A9270